=== PATIENT | male | born 1940 | race Caucasian/White ===

== ENCOUNTER 2022-03-20 12:50 | Inpatient (IN) ==
[2022-03-20] MEDS ORDERED: SODIUM CHLORIDE 0.9% 1000ML 1,000 ML IV ONE (13:09)
[2022-03-20] MEDS ORDERED: METOPROLOL TARTRATE 1 MG/ML VIAL IV STA ×2 (13:09→13:34)
--- NOTE | 2022-03-20 13:12 | Emergency Department Note ---
Impression & Plan Atrial fibrillation with RVR, Left-sided chest pain ED Provider Note Name: RICHARD ENCARNACION Age: 82 Sex: M Arrives Via: Walk-In Informant: Patient ED Provider: Khari Renee MD Chief Complaint: Weakness Impression: As per impressions above Medical Decision Makin-year-old gentleman with a history of dyslipidemia, hypothyroid, CAD, prostate CA arrives for evaluation of acute shortness of breath and weakness. Over the last week he has had worsening weakness and admits to syncopal event last week. This morning he did have an episode of chest pain which resolved. On arrival patient is in A. fib RVR and he appears somewhat tired and uncomfortable. EKG is with A. fib but no evidence of acute ischemia. He has no history of A. fib. He is not on any anticoagulation besides his aspirin 81 mg daily. Laboratory work-up is not overly impressive. He was given 2 rounds of IV Lopressor along with IV fluids and heart rate is somewhat improved sometimes jumping to low 100s but he does look better. Given the recent chest pain and the recent syncope and the new onset A. fib especially given it was requiring multiple rounds of IV rate meds I think hospitalization is indicated and patient is agreeable with this plan. He is not severely shortness of breath and he does not have any clear evidence of PE thus convincing getting a CT PE at this time is necessary especially given he likely be started on anticoagulation for his A. fib which I discussed with hospitalist and they will determine whether oral or IV meds were started for hospitalization. Prior Medical Record and Triage/Nursing Notes reviewed by Me Additional history obtained from chart Differentials:Cardiac ischemia, aortic dissection, pulmonary embolism, pneumothorax, pneumonia, pericarditis, myocarditis, esophageal rupture, GERD, cholecystitis, pancreatitis, musculoskeletal, as well as other pathologies. Vital Signs: reviewed and remarkable for tachycardia Interventions: Lopressor 5 mg IV x2, normal saline bolus IV Labs:Reviewed and remarkable for no significant abnormalities Imagin view chest x-ray no acute findings as per radiology EKG:Per My Interpretation: Indication weakness: A. fib RVR 140 bpm with a QTC of 442. No ischemia appreciated. When compared to previous EKG he is now in A. fib compared to old normal sinus rhythm Cardiac/Tele Monitoring: Cardiac Monitoring: An Order was placed for continuous cardiac monitoring. The monitor shows a rate of 120 with a atrial fibrillation rhythm. Consults:Hospitalist Plan: Disposition:Hospitalization. Condition: Good History of Present Illness:82 yr old male arrives for evaluation of weakness. He notes he has been feeling a bit fatigued over the last week. Admits last week he had a syncopal event. Denies any head injury nor headache. No weakness nor neurological deficits. States this morning awoke very short of breath, weak, fatigued and had an episode of left sided chest tightness. Notes symptoms wax and wane throughout am before coming to ED. States he did have palpitations and tachycardia. Denies headache, neck pain, nausea, vomiting, back pain, abdominal pain, leg swelling, calf pain, fevers, chills, nor other symptoms. Exertion makes worse, rest makes better. No medications taken prior to arrival. No previous history of afib. Does have history of CAD with stenting & dyslipidemia. ROS: See above HPI for pertinent positives & negatives. A total of 10 systems reviewed and were otherwise negative. Past Medical History:Dyslipidemia, hypothyroid, CAD, Prostate CA Past Surgical History:Prostate, Cardiac stents Family History:Mother with COPD, Father HTN/Cancer Social History:Retired consulting sales manager Home Medications:Asa, Atorvastatin, Plavix, Levothyroxine Allergies:NKDA Vitals:Blood Pressure: 134/91, Pulse 140, RR 18, T 35.8C, O2 96% on RA Physical Exam: GENERAL: Patient is tired appearing and in mild distress. EYES: No scleral icterus, unremarkable pupils. ENT: Mucous membranes moist, no nasal congestion. NECK: No masses appreciated, nomeningismus, trachea is midline. RESPIRATORY: No dyspnea. Clear to auscultation and equal bilaterally. No wheeze, no rhonchi. CARDIOVASCULAR: Tachy/Irregular.No murmurs, rubs, gallops appreciated. GASTROINTESTINAL: Abdomen soft, non-tender, no peritonitis.Bowel sounds positive.No masses appreciated. BACK: No midline tenderness, no CVA tenderness EXTREMITIES: Normal motion all extremities, no cyanosis, no edema. NEUROLOGIC: Alert and oriented, no acute motor or sensory deficits, no focal weakness, cranial nerves grossly intact. SKIN: No rash, no jaundice, no diaphoresis. PSYCH: Appropriate GCS: 15 ED Course: Times/Reassessments: Heart rate improving with fluids and IV Lopressor however he remains in A. fib and is agreeable to hospitalization for further management Khari Renee MD Past Med/Surg History Medical History Aortic regurgitation Atrial fibrillation with RVR Atypical chest pain Coronary artery disease Fatigue Hyperlipidemia Hypertension Hypothyroidism Mitral regurgitation Myocardial infarct Pre-diabetes Prostate cancer (11/17/98) Surgical History S/P coronary artery stent placement Family History Father Cancer Pancreatic Hypertension Mother COPD (chronic obstructive pulmonary disease) Cancer Breast Denies family history of Heart disease Social History Smoking Status: Never smoker Hx Alcohol Use: Yes Alcohol Intake Frequency Comment: socially Hx Substance Use: No Preferred Language: Syriac Communication Ability: Effective Hearing Ability: Normal Bulk [employer] Installer Required: No Beliefs That Will Affect Care: None marital status: Life Partner Current Living Situation: Spouse current occupational status: retired Feels Safe at Home: Yes caffeine: Yes Physical Activity Frequency: Does not Exercise Assistive Devices: None Allergies Allergies Allergy/AdvReac Type Severity Reaction Status Date / Time No Known Allergies Allergy Verified 03/20/22 15:53 Home Meds Home Medications Medication Instructions Recorded Confirmed aspirin 81 mg tablet,delayed 81 mg PO DAILY 11/20/20 03/20/22 release levothyroxine 75 mcg tablet 75 mcg PO DAILY 11/23/20 03/20/22 cholecalciferol (vitamin D3) 25 0 mcg PO DAILY 03/20/22 03/20/22 mcg (1,000 unit) capsule (Vitamin D3) multivitamin 1 tab PO QAM 03/20/22 03/20/22 vitamin E 400 unit capsule 0 unit PO QAM 03/20/22 03/20/22 Previous Rx's Medication Instructions Recorded atorvastatin 20 mg tablet 20 mg PO HS #90 tab 01/21/22 apixaban 5 mg tablet (Eliquis) 5 mg PO BID #60 tab 03/21/22 metoprolol tartrate 25 mg tablet 25 mg PO BID #60 tab 03/21/22 Results & Data (ED) Vital Signs Vital Signs - 24 hr 03/20/22 12:52 03/20/22 13:15 Temperature 35.8 C L Temperature Source Temporal Artery Scan Pulse Rate 119 H 130 H Respiratory Rate 18 Blood Pressure 134/91 109/77 Blood Pressure Mean 105 Pulse Oximetry 96 Oxygen Delivery Method Room Air Sepsis Recent Fever Within 48 Hours No Sepsis New/Unexplained Change in Mental Status No Sepsis Action Taken by Nursing No Action Required Laboratory Data Result diagrams: 03/21/22 04:09 03/21/22 04:09 Lab Results 03/20/22 03/20/22 03/20/22 Range/Units 13:09 13:09 13:09 WBC (4.8-10.8) K/uL RBC (4.7-6.1) M/uL Hgb (14.0-18.0) g/dL Hct (42-52) % MCV (80-100) fL MCH (25-34) pg MCHC (32-36) g/dL RDW Std Deviation (36.4-46.3) fL RDW Coeff of Inga (11.5-14.5) % Plt Count (130-400) K/uL MPV (7.4-10.4) fL Immature Gran % (Auto) % Neut % (Auto) % Lymph % (Auto) % Price % (Auto) % Eos % (Auto) % Baso % (Auto) % Neut # (Auto) (1.4-6.5) K/uL Lymph # (Auto) (1.2-3.4) K/uL Price # (Auto) (0.11-0.59) K/uL Eos # (Auto) (0-0.5) K/uL Baso # (Auto) (0-0.2) K/uL Immature Gran # (Auto) (0.00-0.02) K/uL PT 10.7 (9.0-12.0) Seconds INR 1.0 (0.9-1.1) APTT 28.7 (21.0-31.0) Seconds PTT Ratio 1.0 D-Dimer 320 (0-500) ug/L FEU Sodium (136-145) mmol/L Potassium (3.5-5.1) mmol/L Chloride (98-107) mmol/L Carbon Dioxide (21-32) mmol/L Anion Gap (3-11) BUN (6-23) mg/dl Creatinine (0.6-1.4) mg/dl Est Cr Clr Drug Dosing ml/min Est GFR ( Amer) ml/min Est GFR (Non-Af Amer) ml/min BUN/Creatinine Ratio (10-20) Glucose (70-99(Fasting)) mg/dl Lactate 1.9 (0.4-2.0) mmol/L Calcium (8.5-10.1) mg/dl Magnesium (1.7-2.4) mg/dl Total Bilirubin (0.2-1.0) mg/dl Direct Bilirubin (0-0.2) mg/dl AST (13-39) U/L ALT (7-52) U/L Alkaline Phosphatase (34-104) U/L Troponin I High Sens (0-20) pg/ml Total Protein (6.0-8.3) gm/dl Albumin (3.4-5.0) gm/dl TSH 4.786 H (0.300-4.500) uIu/ml SARS-CoV-2, RNA, NAAT (NEGATIVE) 03/20/22 03/20/22 03/20/22 Range/Units 13:09 13:09 14:20 WBC 11.12 H (4.8-10.8) K/uL RBC 5.48 (4.7-6.1) M/uL Hgb 17.3 (14.0-18.0) g/dL Hct 48.0 (42-52) % MCV 87.6 (80-100) fL MCH 31.6 (25-34) pg MCHC 36.0 (32-36) g/dL RDW Std Deviation 43.0 (36.4-46.3) fL RDW Coeff of Inga 13.4 (11.5-14.5) % Plt Count 207 (130-400) K/uL MPV 10.9 H (7.4-10.4) fL Immature Gran % (Auto) 0.3 % Neut % (Auto) 62.5 % Lymph % (Auto) 26.3 % Price % (Auto) 7.4 % Eos % (Auto) 3.1 % Baso % (Auto) 0.4 % Neut # (Auto) 6.96 H (1.4-6.5) K/uL Lymph # (Auto) 2.93 (1.2-3.4) K/uL Price # (Auto) 0.82 H (0.11-0.59) K/uL Eos # (Auto) 0.34 (0-0.5) K/uL Baso # (Auto) 0.04 (0-0.2) K/uL Immature Gran # (Auto) 0.03 H (0.00-0.02) K/uL PT (9.0-12.0) Seconds INR (0.9-1.1) APTT (21.0-31.0) Seconds PTT Ratio D-Dimer (0-500) ug/L FEU Sodium 138 (136-145) mmol/L Potassium 4.2 (3.5-5.1) mmol/L Chloride 108 H (98-107) mmol/L Carbon Dioxide 22 (21-32) mmol/L Anion Gap 8 (3-11) BUN 18 (6-23) mg/dl Creatinine 0.95 (0.6-1.4) mg/dl Est Cr Clr Drug Dosing 57.0 ml/min Est GFR ( Amer) 86.7 ml/min Est GFR (Non-Af Amer) 74.8 ml/min BUN/Creatinine Ratio 18.9 (10-20) Glucose 125 H (70-99(Fasting)) mg/dl Lactate (0.4-2.0) mmol/L Calcium 9.2 (8.5-10.1) mg/dl Magnesium 2.1 (1.7-2.4) mg/dl Total Bilirubin 0.9 (0.2-1.0) mg/dl Direct Bilirubin 0.2 (0-0.2) mg/dl AST 14 (13-39) U/L ALT 18 (7-52) U/L Alkaline Phosphatase 89 (34-104) U/L Troponin I High Sens 3.1 (0-20) pg/ml Total Protein 6.6 (6.0-8.3) gm/dl Albumin 3.9 (3.4-5.0) gm/dl TSH (0.300-4.500) uIu/ml SARS-CoV-2, RNA, NAAT NEGATIVE (NEGATIVE) Administered Medications Discontinued Medications Aspirin (Aspirin 81 Mg Ectab) 81 mg PO DAILY MERE Stop: 04/20/22 08:59 Last Admin: 03/21/22 08:53 Dose: 81 mg Documented by: [id number] Atorvastatin Calcium (Atorvastatin 20 Mg Tab) 20 mg PO HS MERE Stop: 04/19/22 20:59 Last Admin: 03/20/22 21:12 Dose: 20 mg Documented by: [id number] Sodium Chloride (Nss 1000ml) 1,000 mls @ 999 mls/hr IV .Q1H1M ONE Stop: 03/20/22 14:09 Last Infusion: 03/20/22 14:11 Dose: 0 mls/hr Documented by: [id number] Admin: 03/20/22 13:13 Dose: 999 mls/hr Documented by: [id number] Sodium Chloride (Nss 1000ml) 1,000 mls @ 100 mls/hr IV .Q10H MERE Stop: 03/21/22 19:24 Last Infusion: 03/21/22 16:06 Dose: 0 mls/hr Documented by: [id number] Admin: 03/21/22 08:44 Dose: 100 mls/hr Documented by: [id number] Infusion: 03/21/22 07:44 Dose: 100 mls/hr Documented by: [id number] Admin: 03/20/22 21:44 Dose: 100 mls/hr Documented by: [id number] Infusion: 03/20/22 21:44 Dose: 0 mls/hr Documented by: [id number] Admin: 03/20/22 14:25 Dose: 125 mls/hr Documented by: [id number] Heparin Sodium/Dextrose (Heparin Sodium/Dextrose) 25,000 units in 500 mls @ 25 mls/hr IV .Q20H MERE; Protocol Stop: 04/19/22 17:35 Last Titration: 03/21/22 16:06 Dose: 0 units/hr, 0 mls/hr Documented by: [id number] Cosigned by: [id number] Admin: 03/21/22 12:26 Dose: 1,250 units/hr, 25 mls/hr Documented by: [id number] Cosigned by: [id number] Titration: 03/21/22 12:26 Dose: 1,250 units/hr, 25 mls/hr Documented by: [id number] Cosigned by: [id number] Admin: 03/20/22 17:49 Dose: 1,250 units/hr, 25 mls/hr Documented by: [id number] Cosigned by: [id number] Levothyroxine Sodium (Levothyroxine Sodium 75 Mcg Tablet) 75 mcg PO DAILYBB [facility] Stop: 04/20/22 06:29 Last Admin: 03/21/22 04:36 Dose: 75 mcg Documented by: [id number] Metoprolol Tartrate (Metoprolol Tartrate 1 Mg/Ml Vial) 5 mg IV NOW STA Stop: 03/20/22 13:10 Last Admin: 03/20/22 13:15 Dose: 5 mg Documented by: [id number] Metoprolol Tartrate (Metoprolol Tartrate 1 Mg/Ml Vial) 5 mg IV NOW STA Stop: 03/20/22 13:35 Last Admin: 03/20/22 14:29 Dose: 5 mg Documented by: [id number] Metoprolol Tartrate (Metoprolol Tartrate 25 Mg Tab) 12.5 mg PO QID [facility] Stop: 04/19/22 16:59 Last Admin: 03/21/22 13:18 Dose: 12.5 mg Documented by: [id number] Admin: 03/21/22 10:41 Dose: 12.5 mg Documented by: [id number] Admin: 03/20/22 21:12 Dose: 12.5 mg Documented by: [id number] Admin: 03/20/22 18:01 Dose: 12.5 mg Documented by: [id number] Vitamin D (Cholecalciferol 1,000 Units 25 Mcg Tab) 1,000 units PO DAILY [facility] Stop: 04/20/22 08:59 Last Admin: 03/21/22 08:53 Dose: 1,000 units Documented by: [id number] Discharge Plan Visit Data Chief Complaint: Hypertension Stated Complaint: FLUCTUATING BLOOD PRESSURE Discharge Problem: Atrial fibrillation with RVR, Left-sided chest pain Patient Disposition: Admitted As Inpatient Discharge Instructions Interventions: ED Discharge Assessment Last Done: 03/20/22 17:10
--- NOTE | 2022-03-20 13:36 | XRay Report ---
XR chest 1V portable CLINICAL HISTORY: Weakness. Evaluate cardiopulmonary status COMPARISON STUDY: 01/10/2022 TECHNIQUE: 1 view of the chest FINDINGS: Single frontal view of the chest demonstrates the cardiomediastinal silhouette to be within normal li mits. There is again asymmetric elevation of the right hemidiaphragm. The lungs are clear of alveolar opacities. There is no evidence for pleural effusion. There is no evidence for vascular congestion. There is no acute osseous pathology. IMPRESSION: 1. No acute cardiopulmonary disease. ACT 112: Negative or not required by law. Electronically signed by: Vinicius Torres M.D. 03/20/2022 1:34 PM
[2022-03-20 14:04] LABS: Basophils # (auto) 0.04 K/uL (0-0.2); Basophils % (auto) 0.4 %; Eosinophils # (auto) 0.34 K/uL (0-0.5); Eosinophils % (auto) 3.1 %; Hemoglobin 17.3 g/dL (14.0-18.0); Immature Granulocytes # (auto) 0.03 K/uL (0.00-0.02); Immature Granulocytes % (auto) 0.3 %; Lymphocytes # (auto) 2.93 K/uL (1.2-3.4); Lymphocytes % (auto) 26.3 %; Mean Corpuscular Hemoglobin 31.6 pg (25-34); Mean Corpuscular Volume 87.6 fL (80-100); Mean Platelet Volume 10.9 fL (7.4-10.4); Monocytes # (auto) 0.82 K/uL (0.11-0.59); Monocytes % (auto) 7.4 %; Neutrophils # (auto) 6.96 K/uL (1.4-6.5); Neutrophils % (auto) 62.5 %; Platelet Count 207 K/uL (130-400); RDW Coefficient of Variation 13.4 % (11.5-14.5); Red Blood Count 5.48 M/uL (4.7-6.1); White Blood Count 11.12 K/uL (4.8-10.8)
[2022-03-20 14:12] LABS: D Dimer 320 ug/L FEU (0-500); Partial Thromboplastin Time 28.7 Seconds (21.0-31.0); Prothrombin Time 10.7 Seconds (9.0-12.0)
[2022-03-20 14:15] LABS: Troponin I High Sensitivity 3.1 pg/ml (0-20)
[2022-03-20 14:19] LABS: Albumin Level 3.9 gm/dl (3.4-5.0); BUN Creatinine Ratio 18.9 (10-20); Bilirubin Direct 0.2 mg/dl (0-0.2); Bilirubin,Total 0.9 mg/dl (0.2-1.0); Calcium 9.2 mg/dl (8.5-10.1); Est GFR (African American) 86.7 ml/min; Est GFR (Non-African American) 74.8 ml/min; Magnesium 2.1 mg/dl (1.7-2.4); Potassium 4.2 mmol/L (3.5-5.1); Total Protein 6.6 gm/dl (6.0-8.3)
[2022-03-20] MEDS: SODIUM CHLORIDE 0.9% 1000ML 1,000 ML IV SCH ×2 (14:25→21:44)
--- NOTE | 2022-03-20 15:08 | History & Physical Report ---
Date of Service March 20, 2022 Assessment & Plan (1) Atrial fibrillation with RVR: Plan: Atrial Fibrillation RVR: New Onset CHDS2 score:2 TSH:4.7 CXR:No acute cardiopulmonary disease. ECHO pending Monitor electrolytes Started on metoprolol 12.5 mg QID IV Lopressor PRN Started on IV heparin Follows with [facility] Cardiology Cardiology consulted Trend Cardiac enzymes Replace electrolytes as needed Continue gentle IV fluids CAD S/P PCI Continue aspirin, Lipitor Hold Plavix while on IV heparin Repeat EKG in the morning Hypothyroidism TSH mildly elevated Check free T4 Continue levothyroxine Hypertension As per records BP low on presentation Currently not on any medication Monitor Prostate cancer S/P cryosurgery Residual cancer currently being monitored Follows with urology as outpatient Valvular heart disease Continue home medications Update echo Leukocytosis Likely reactive No obvious source of infection Monitor CODE STATUS Full code as per my discussion with patient. Disposition PT/OT prior to discharge History of Present Illness Chief Complaint: Afib RVR Primary Care Provider: Albino Purvis MD Patient is a 82-year-old male with history of prostate cancer S/P cryosurgery, hypothyroidism, dyslipidemia, prediabetes, coronary artery disease S/P PCI, arctic valve regurgitation, mitral valve insufficiency, hypertension and no other significant past medical history presents with history of lethargy, tiredness and left-sided chest achiness which started this morning. Patient woke up and was taking his dog out and felt that his left side of the chest is achy, 1/10 intensity, nonradiating, denies any palpitations, associated with some shortness of breath. Denies any aggravating, relieving factors.He also denies any nausea, vomiting, dizziness, diaphoresis. Although he admits to have intermittent dizziness on and off but no dizziness today. He checked his blood pressure at home and found to be 100/76 and felt his pulse was irregular, elevated at 123. He also states that he has poor oral fluid intake (Mostly drinks Carbonated drinks), " I don't drink water, I don't feel thirsty". He was found to be in A. fib RVR while in ED. His blood pressure dropped after receiving IV Lopressor. Patient was started on normal saline while in ED. Denies any history of pedal edema, cough, wheezing, fever, chills, headache, change in vision, nausea, vomiting, abdominal pain, diarrhea, dysuria, recent change in medications. Currently patient is chest pain free after receiving Lopressor. Allergies Allergy/AdvReac Type Severity Reaction Status Date / Time No Known Allergies Allergy Verified 03/20/22 15:53 Home Medications Medication Instructions Recorded Confirmed Type aspirin 81 mg tablet,delayed 81 mg PO DAILY 11/20/20 03/20/22 History release levothyroxine 75 mcg tablet 75 mcg PO DAILY 11/23/20 03/20/22 History atorvastatin 20 mg tablet 20 mg PO HS #90 tab 01/21/22 03/20/22 Rx cholecalciferol (vitamin D3) 25 0 mcg PO DAILY 03/20/22 03/20/22 History mcg (1,000 unit) capsule (Vitamin D3) clopidogrel 75 mg tablet (Plavix) 75 mg PO HS 03/20/22 03/20/22 History multivitamin 1 tab PO QAM 03/20/22 03/20/22 History vitamin E 400 unit capsule 0 unit PO QAM 03/20/22 03/20/22 History Past Med/Surg History Medical History (Updated 03/20/22 @ 17:25 by Boni Bhatti MD) Aortic regurgitation Atrial fibrillation with RVR Atypical chest pain Coronary artery disease Fatigue Hyperlipidemia Hypertension Hypothyroidism Mitral regurgitation Myocardial infarct Pre-diabetes Prostate cancer (11/17/98) Surgical History S/P coronary artery stent placement Family History Father Cancer Pancreatic Hypertension Mother COPD (chronic obstructive pulmonary disease) Cancer Breast Denies family history of Heart disease Social History Smoking Status: Never smoker Hx Alcohol Use: Yes Alcohol Intake Frequency Comment: socially Hx Substance Use: No Preferred Language: Serbian Communication Ability: Effective Hearing Ability: Normal Director Foundation Required: No Beliefs That Will Affect Care: None marital status: Current Living Situation: Spouse current occupational status: retired Feels Safe at Home: Yes caffeine: Yes Physical Activity Frequency: Does not Exercise Assistive Devices: Glasses Review of Systems Review of Systems: All systems reviewed & are unremarkable except as noted in Subjective Physical Exam Physical Exam: Physical Exam: Vitals signs as noted above General Appearance:Moderately built and nourished, no apparent distress Head: normocephalic, Atraumatic Eyes: normal inspection, EOMI Neck: supple, Trachea midline Respiratory/Chest: Normal breath sounds, CTA, No accessory muscle use Cardiovascular: Irregularly irregular, Tachycardia, + murmur Abdomen/GI:Soft, Non tender, Bowel sounds present Extremities/Musculoskeletal:normal inspection, no edema Neurologic/Psych:AAOX3, grossly no focal neurological deficits Skin: normal color, warm Results & Data Results & Data ([facility]) Vital Signs (Past 12 Hours) Vital Signs Temp Pulse Resp BP Pulse Ox 03/20/22 14:50 93 H 12 96 03/20/22 14:45 90 14 96 03/20/22 14:40 108 H 11 L 98 03/20/22 14:35 91 H 11 L 107/74 97 03/20/22 14:30 101 H 15 118/77 95 03/20/22 14:29 103 H 118/77 03/20/22 14:25 102 H 7 L 97 03/20/22 14:20 106 H 18 96 03/20/22 14:15 97 H 6 L 96 03/20/22 14:10 96 H 19 96 03/20/22 14:05 92 H 8 L 95 03/20/22 14:00 97 H 9 L 123/87 97 03/20/22 13:55 108 H 13 96 03/20/22 13:50 119 H 15 99/73 L 95 03/20/22 13:45 100 H 6 L 95 03/20/22 13:40 102 H 14 96 03/20/22 13:35 101 H 15 03/20/22 13:31 126 H 19 110/82 96 03/20/22 13:30 118 H 15 97 03/20/22 13:25 115 H 10 L 104/68 97 03/20/22 13:23 118 H 11 L 115/76 96 03/20/22 13:20 124 H 12 101/70 97 03/20/22 13:18 130 H 12 97 03/20/22 13:15 130 H 109/77 03/20/22 12:52 35.8 C L 119 H 18 134/91 96 Laboratory Results Short CBC 03/20/22 Range/Units 13:09 WBC 11.12 H (4.8-10.8) K/uL Hgb 17.3 (14.0-18.0) g/dL Hct 48.0 (42-52) % Plt Count 207 (130-400) K/uL BMP 03/20/22 13:09 Sodium 138 Potassium 4.2 Chloride 108 H Carbon Dioxide 22 BUN 18 Creatinine 0.95 Glucose 125 H Calcium 9.2 Liver Function 03/20/22 Range/Units 13:09 Total Bilirubin 0.9 (0.2-1.0) mg/dl Direct Bilirubin 0.2 (0-0.2) mg/dl AST 14 (13-39) U/L ALT 18 (7-52) U/L Alkaline Phosphatase 89 (34-104) U/L Albumin 3.9 (3.4-5.0) gm/dl Diagnostic Findings CXR: No acute cardiopulmonary disease. ECG Additional Comments: EKG: Atrial fibrillation with RVR. Left axis deviation. QTc 442.
[2022-03-20] MEDS ORDERED: POLYETHYLENE (MIRALAX) 17 GM PACK PO PRN (16:58)
[2022-03-20] MEDS ORDERED: ACETAMINOPHEN 325 MG TAB PO PRN (16:58)
[2022-03-20] MEDS ORDERED: METOPROLOL TARTRATE 1 MG/ML VIAL IV PRN (16:58)
[2022-03-20] MEDS ORDERED: Heparin IV Adult Wt-Based Standard *NO* Bolus Protocol IV SCH (16:58)
[2022-03-20] MEDS ORDERED: ONDANSETRON INJ 2 MG/ML 2 ML VIAL IV PRN (16:58)
[2022-03-20] MEDS: HEPARIN SODIUM/DEXTROSE 25,000 UNITS/500 ML BAG IV SCH (17:49)
[2022-03-20] MEDS: METOPROLOL TARTRATE 25 MG TAB PO SCH ×2 (18:01→21:12)
[2022-03-20] MEDS ORDERED: ATORVASTATIN 20 MG TAB PO SCH (21:00)
[2022-03-21 00:17] LABS: Partial Thromboplastin Ratio 1.9
[2022-03-21 00:27] LABS: Partial Thromboplastin Time 51.8 Seconds (21.0-31.0)
[2022-03-21 04:55] LABS: Partial Thromboplastin Ratio 2.4; Troponin I High Sensitivity 3.5 pg/ml (0-20)
[2022-03-21 04:57] LABS: Partial Thromboplastin Time 66.1 Seconds (21.0-31.0)
[2022-03-21 04:59] LABS: BUN Creatinine Ratio 16.2 (10-20); Calcium 8.2 mg/dl (8.5-10.1); Creatinine Clr Calc Pharmacy 51.6 ml/min; Est GFR (African American) 76.8 ml/min; Est GFR (Non-African American) 66.3 ml/min; Magnesium 1.9 mg/dl (1.7-2.4); Potassium 4.2 mmol/L (3.5-5.1)
[2022-03-21 05:16] LABS: Basophils # (auto) 0.03 K/uL (0-0.2); Basophils % (auto) 0.3 %; Eosinophils # (auto) 0.41 K/uL (0-0.5); Eosinophils % (auto) 3.7 %; Hematocrit (blood only) 44.6 % (42-52); Hemoglobin 15.5 g/dL (14.0-18.0); Immature Granulocytes # (auto) 0.05 K/uL (0.00-0.02); Immature Granulocytes % (auto) 0.5 %; Lymphocytes # (auto) 3.97 K/uL (1.2-3.4); Lymphocytes % (auto) 36.1 %; Mean Corpuscular Hemoglobin 31.1 pg (25-34); Mean Corpuscular Hgb Conc 34.8 g/dL (32-36); Mean Corpuscular Volume 89.4 fL (80-100); Monocytes % (auto) 8.2 %; Neutrophils # (auto) 5.64 K/uL (1.4-6.5); Neutrophils % (auto) 51.2 %; Platelet Count 178 K/uL (130-400); RDW Coefficient of Variation 13.7 % (11.5-14.5); RDW Standard Deviation 44.3 fL (36.4-46.3); Red Blood Count 4.99 M/uL (4.7-6.1)
[2022-03-21] MEDS ORDERED: LEVOTHYROXINE SODIUM 75 MCG TABLET PO SCH (06:30)
[2022-03-21] MEDS: SODIUM CHLORIDE 0.9% 1000ML 1,000 ML IV SCH (08:44)
[2022-03-21] MEDS ORDERED: CHOLECALCIFEROL 1,000 UNITS 25 MCG TAB PO SCH (09:00)
[2022-03-21] MEDS ORDERED: ASPIRIN 81 MG ECTAB PO SCH (09:00)
--- NOTE | 2022-03-21 09:50 | Hospitalist Progress Note ---
Date of Service March 21, 2022 Assessment & Plan (1) Atrial fibrillation with RVR: Plan: Atrial Fibrillation RVR: New Onset CHDS2 score:2 TSH:4.7 CXR:No acute cardiopulmonary disease. ECHO ontained - Normal LV size and systolic function. EF 65 to 70%. No regional wall motion abnormalities. Moderate concentric LVH. Sclerotic aortic valve without significant stenosis. Mild mitral regurg. Normal estimated RV systolic pressure, assuming normal right atrial pressure. Atrial fibrillation. Compared to prior study in November 2020, Braxton alvarado has replaced sinus rhythm Monitor electrolytes Started on metoprolol, plan to DC on 25 mg BID IV Lopressor PRN while inpt Started on IV heparin - will DC on Eliquis Follows with [facility] Cardiology -continue aspirin, however as we are discharging on Eliquis, stop Plavix. Cardiology consulted Trended Cardiac enzymes - negative x3 Replace electrolytes as needed Continue gentle IV fluids 03/21 - Pt converted to NSR - ECG ordered to confirm. CAD S/P PCI Continue aspirin, Lipitor Hold Plavix while on IV heparin Repeated EKG Hypothyroidism TSH mildly elevated free T4 1.11 Continue levothyroxine Hypertension As per records BP low on presentation Currently not on any home medication starting metoprolol Monitor Prostate cancer S/P cryosurgery Residual cancer currently being monitored Follows with urology as outpatient Valvular heart disease Continue home medications Update echo, as above Leukocytosis Likely reactive No obvious source of infection Monitor CODE STATUS Full code Disposition: plan to Dc home Admission and Anticipated Discharge Date Admission Date: March 20, 2022 Subjective Pt seen in follow up of new onset Afib Presented with Braxton alvarado with RVR, converted to sinus rhythm later today Currently laying in bed, in no acute distress Denies any palpitations chest pain shortness of breath Also denies any dizziness or lightheadedness, fever chills, nausea vomiting Seen by cardiology, medications adjusted Review of Systems Review of Systems: All systems reviewed & are unremarkable except as noted in Subjective Physical Exam Physical Exam: General Appearance:Moderately built and nourished, no apparent distress Head: normocephalic, Atraumatic Eyes: normal inspection, EOMI Neck: supple, Trachea midline Respiratory/Chest: Normal breath sounds, CTA, No accessory muscle use Cardiovascular: RRR, no murmur noted Abdomen/GI:Soft, Non tender, Bowel sounds present Extremities/Musculoskeletal:normal inspection, no edema Neurologic/Psych:AAOX3,answering questions appropriately, speech fluent, moves extremities Skin: normal color, warm Results & Data Results & Data ([facility]) Vital Signs (Past 12 Hours) Vital Signs Temp Pulse Pulse Resp BP Pulse Ox 03/21/22 07:45 36.6 C 97 H 15 100/62 95 03/21/22 04:15 36.3 C L 96 H 16 99/63 L 94 03/20/22 23:00 101 H 03/20/22 22:50 36.7 C 106 H 18 115/87 96 Laboratory Results 03/21/22 03/21/22 03/21/22 Range/Units 04:09 04:09 04:09 WBC (4.8-10.8) K/uL RBC (4.7-6.1) M/uL Hgb (14.0-18.0) g/dL Hct (42-52) % MCV (80-100) fL MCH (25-34) pg MCHC (32-36) g/dL RDW Std Deviation (36.4-46.3) fL RDW Coeff of Inga (11.5-14.5) % Plt Count (130-400) K/uL MPV (7.4-10.4) fL Immature Gran % (Auto) % Neut % (Auto) % Lymph % (Auto) % [place] % (Auto) % Eos % (Auto) % Baso % (Auto) % Neut # (Auto) (1.4-6.5) K/uL Lymph # (Auto) (1.2-3.4) K/uL [place] # (Auto) (0.11-0.59) K/uL Eos # (Auto) (0-0.5) K/uL Baso # (Auto) (0-0.2) K/uL Immature Gran # (Auto) (0.00-0.02) K/uL PT (9.0-12.0) Seconds INR (0.9-1.1) APTT 66.1 H* (21.0-31.0) Seconds PTT Ratio 2.4 D-Dimer (0-500) ug/L FEU Sodium 138 (136-145) mmol/L Potassium 4.2 (3.5-5.1) mmol/L Chloride 108 H (98-107) mmol/L Carbon Dioxide 26 (21-32) mmol/L Anion Gap 4 (3-11) BUN 17 (6-23) mg/dl Creatinine 1.05 (0.6-1.4) mg/dl Est Cr Clr Drug Dosing 51.6 ml/min Est GFR ( Amer) 76.8 ml/min Est GFR (Non-Af Amer) 66.3 ml/min BUN/Creatinine Ratio 16.2 (10-20) Glucose 110 H (70-99(Fasting)) mg/dl Lactate (0.4-2.0) mmol/L Calcium 8.2 L (8.5-10.1) mg/dl Magnesium 1.9 (1.7-2.4) mg/dl Total Bilirubin (0.2-1.0) mg/dl Direct Bilirubin (0-0.2) mg/dl AST (13-39) U/L ALT (7-52) U/L Alkaline Phosphatase (34-104) U/L Troponin I High Sens 3.5 (0-20) pg/ml Total Protein (6.0-8.3) gm/dl Albumin (3.4-5.0) gm/dl TSH (0.300-4.500) uIu/ml Free T4 1.11 (0.61-1.60) ng/dl SARS-CoV-2, RNA, NAAT (NEGATIVE) 03/21/22 03/20/22 03/20/22 Range/Units 04:09 23:30 19:02 WBC 11.00 H (4.8-10.8) K/uL RBC 4.99 (4.7-6.1) M/uL Hgb 15.5 (14.0-18.0) g/dL Hct 44.6 (42-52) % MCV 89.4 (80-100) fL MCH 31.1 (25-34) pg MCHC 34.8 (32-36) g/dL RDW Std Deviation 44.3 (36.4-46.3) fL RDW Coeff of Inga 13.7 (11.5-14.5) % Plt Count 178 (130-400) K/uL MPV 11.0 H (7.4-10.4) fL Immature Gran % (Auto) 0.5 % Neut % (Auto) 51.2 % Lymph % (Auto) 36.1 % [place] % (Auto) 8.2 % Eos % (Auto) 3.7 % Baso % (Auto) 0.3 % Neut # (Auto) 5.64 (1.4-6.5) K/uL Lymph # (Auto) 3.97 H (1.2-3.4) K/uL [place] # (Auto) 0.90 H (0.11-0.59) K/uL Eos # (Auto) 0.41 (0-0.5) K/uL Baso # (Auto) 0.03 (0-0.2) K/uL Immature Gran # (Auto) 0.05 H (0.00-0.02) K/uL PT (9.0-12.0) Seconds INR (0.9-1.1) APTT 51.8 H* (21.0-31.0) Seconds PTT Ratio 1.9 D-Dimer (0-500) ug/L FEU Sodium (136-145) mmol/L Potassium (3.5-5.1) mmol/L Chloride (98-107) mmol/L Carbon Dioxide (21-32) mmol/L Anion Gap (3-11) BUN (6-23) mg/dl Creatinine (0.6-1.4) mg/dl Est Cr Clr Drug Dosing ml/min Est GFR ( Amer) ml/min Est GFR (Non-Af Amer) ml/min BUN/Creatinine Ratio (10-20) Glucose (70-99(Fasting)) mg/dl Lactate (0.4-2.0) mmol/L Calcium (8.5-10.1) mg/dl Magnesium (1.7-2.4) mg/dl Total Bilirubin (0.2-1.0) mg/dl Direct Bilirubin (0-0.2) mg/dl AST (13-39) U/L ALT (7-52) U/L Alkaline Phosphatase (34-104) U/L Troponin I High Sens 3.7 (0-20) pg/ml Total Protein (6.0-8.3) gm/dl Albumin (3.4-5.0) gm/dl TSH (0.300-4.500) uIu/ml Free T4 (0.61-1.60) ng/dl SARS-CoV-2, RNA, NAAT (NEGATIVE) 03/20/22 03/20/22 03/20/22 Range/Units 14:20 13:09 13:09 WBC 11.12 H (4.8-10.8) K/uL RBC 5.48 (4.7-6.1) M/uL Hgb 17.3 (14.0-18.0) g/dL Hct 48.0 (42-52) % MCV 87.6 (80-100) fL MCH 31.6 (25-34) pg MCHC 36.0 (32-36) g/dL RDW Std Deviation 43.0 (36.4-46.3) fL RDW Coeff of Inga 13.4 (11.5-14.5) % Plt Count 207 (130-400) K/uL MPV 10.9 H (7.4-10.4) fL Immature Gran % (Auto) 0.3 % Neut % (Auto) 62.5 % Lymph % (Auto) 26.3 % [place] % (Auto) 7.4 % Eos % (Auto) 3.1 % Baso % (Auto) 0.4 % Neut # (Auto) 6.96 H (1.4-6.5) K/uL Lymph # (Auto) 2.93 (1.2-3.4) K/uL [place] # (Auto) 0.82 H (0.11-0.59) K/uL Eos # (Auto) 0.34 (0-0.5) K/uL Baso # (Auto) 0.04 (0-0.2) K/uL Immature Gran # (Auto) 0.03 H (0.00-0.02) K/uL PT (9.0-12.0) Seconds INR (0.9-1.1) APTT (21.0-31.0) Seconds PTT Ratio D-Dimer (0-500) ug/L FEU Sodium 138 (136-145) mmol/L Potassium 4.2 (3.5-5.1) mmol/L Chloride 108 H (98-107) mmol/L Carbon Dioxide 22 (21-32) mmol/L Anion Gap 8 (3-11) BUN 18 (6-23) mg/dl Creatinine 0.95 (0.6-1.4) mg/dl Est Cr Clr Drug Dosing 57.0 ml/min Est GFR ( Amer) 86.7 ml/min Est GFR (Non-Af Amer) 74.8 ml/min BUN/Creatinine Ratio 18.9 (10-20) Glucose 125 H (70-99(Fasting)) mg/dl Lactate (0.4-2.0) mmol/L Calcium 9.2 (8.5-10.1) mg/dl Magnesium 2.1 (1.7-2.4) mg/dl Total Bilirubin 0.9 (0.2-1.0) mg/dl Direct Bilirubin 0.2 (0-0.2) mg/dl AST 14 (13-39) U/L ALT 18 (7-52) U/L Alkaline Phosphatase 89 (34-104) U/L Troponin I High Sens 3.1 (0-20) pg/ml Total Protein 6.6 (6.0-8.3) gm/dl Albumin 3.9 (3.4-5.0) gm/dl TSH (0.300-4.500) uIu/ml Free T4 (0.61-1.60) ng/dl SARS-CoV-2, RNA, NAAT NEGATIVE (NEGATIVE) 03/20/22 03/20/22 03/20/22 Range/Units 13:09 13:09 13:09 WBC (4.8-10.8) K/uL RBC (4.7-6.1) M/uL Hgb (14.0-18.0) g/dL Hct (42-52) % MCV (80-100) fL MCH (25-34) pg MCHC (32-36) g/dL RDW Std Deviation (36.4-46.3) fL RDW Coeff of Inga (11.5-14.5) % Plt Count (130-400) K/uL MPV (7.4-10.4) fL Immature Gran % (Auto) % Neut % (Auto) % Lymph % (Auto) % [place] % (Auto) % Eos % (Auto) % Baso % (Auto) % Neut # (Auto) (1.4-6.5) K/uL Lymph # (Auto) (1.2-3.4) K/uL [place] # (Auto) (0.11-0.59) K/uL Eos # (Auto) (0-0.5) K/uL Baso # (Auto) (0-0.2) K/uL Immature Gran # (Auto) (0.00-0.02) K/uL PT 10.7 (9.0-12.0) Seconds INR 1.0 (0.9-1.1) APTT 28.7 (21.0-31.0) Seconds PTT Ratio 1.0 D-Dimer 320 (0-500) ug/L FEU Sodium (136-145) mmol/L Potassium (3.5-5.1) mmol/L Chloride (98-107) mmol/L Carbon Dioxide (21-32) mmol/L Anion Gap (3-11) BUN (6-23) mg/dl Creatinine (0.6-1.4) mg/dl Est Cr Clr Drug Dosing ml/min Est GFR ( Amer) ml/min Est GFR (Non-Af Amer) ml/min BUN/Creatinine Ratio (10-20) Glucose (70-99(Fasting)) mg/dl Lactate 1.9 (0.4-2.0) mmol/L Calcium (8.5-10.1) mg/dl Magnesium (1.7-2.4) mg/dl Total Bilirubin (0.2-1.0) mg/dl Direct Bilirubin (0-0.2) mg/dl AST (13-39) U/L ALT (7-52) U/L Alkaline Phosphatase (34-104) U/L Troponin I High Sens (0-20) pg/ml Total Protein (6.0-8.3) gm/dl Albumin (3.4-5.0) gm/dl TSH 4.786 H (0.300-4.500) uIu/ml Free T4 (0.61-1.60) ng/dl SARS-CoV-2, RNA, NAAT (NEGATIVE) Medications Administered Current Inpatient Medications Acetaminophen (Acetaminophen 325 Mg Tab) 650 mg PO Q4H PRN PRN Reason: Pain or Fever Stop: 04/19/22 16:57 Aspirin (Aspirin 81 Mg Ectab) 81 mg PO DAILY MERE Stop: 04/20/22 08:59 Last Admin: 03/21/22 08:53 Dose: 81 mg Documented by: Atorvastatin Calcium (Atorvastatin 20 Mg Tab) 20 mg PO HS MERE Stop: 04/19/22 20:59 Last Admin: 03/20/22 21:12 Dose: 20 mg Documented by: Sodium Chloride (Nss 1000ml) 1,000 mls @ 100 mls/hr IV .Q10H [facility] Stop: 03/21/22 19:24 Last Admin: 03/21/22 08:44 Dose: 100 mls/hr Documented by: Heparin Sodium/Dextrose (Heparin Sodium/Dextrose) 25,000 units in 500 mls @ 25 mls/hr IV .Q20H [facility]; Protocol Stop: 04/19/22 17:35 Last Admin: 03/20/22 17:49 Dose: 1,250 units/hr, 25 mls/hr Documented by: Levothyroxine Sodium (Levothyroxine Sodium 75 Mcg Tablet) [facility]: 04/20/22 06:29 Last Admin: 03/21/22 04:36 Dose: 75 mcg Documented by: Metoprolol Tartrate (Metoprolol Tartrate 25 Mg Tab) 12.5 mg PO QID [facility] Stop: 04/19/22 16:59 Last Admin: 03/20/22 21:12 Dose: 12.5 mg Documented by: Metoprolol Tartrate (Metoprolol Tartrate 1 Mg/Ml Vial) 2.5 mg IV Q6 PRN PRN Reason: Tachycardia HR> 120 Stop: 04/19/22 16:57 Ondansetron HCl (Ondansetron Inj 2 Mg/Ml 2 Ml Vial) 4 mg IV Q6H PRN PRN Reason: Nausea Stop: 04/19/22 16:57 Polyethylene Glycol (Polyethylene (Miralax) 17 Gm Pack) 17 gm PO DAILY PRN PRN Reason: Constipation Stop: 04/19/22 16:57 Vitamin D (Cholecalciferol 1,000 Units 25 Mcg Tab) 1,000 units PO DAILY [facility] Stop: 04/20/22 08:59 Last Admin: 03/21/22 08:53 Dose: 1,000 units Documented by:
[2022-03-21] MEDS: METOPROLOL TARTRATE 25 MG TAB PO SCH ×2 (10:41→13:18)
[2022-03-21] MEDS: HEPARIN SODIUM/DEXTROSE 25,000 UNITS/500 ML BAG IV SCH (12:26)
--- NOTE | 2022-03-21 14:06 | XCELERA ---
[id number] [id number]
--- NOTE | 2022-03-21 14:19 | Cardiology Consultation ---
Date of Consultation March 21, 2022 Assessment & Plan (1) Atrial fibrillation with RVR: (2) Paroxysmal atrial fibrillation: (3) Coronary artery disease: (4) S/P coronary artery stent placement: (5) Hypertension: (6) Mitral regurgitation: (7) Atypical chest pain: (8) Aortic regurgitation: ASSESSMENT/PLAN: 1. Paroxysmal atrial fibrillation/AFib with RVR: He remained in AFib during our conversation but have since been told that he has converted. ECG ordered to document such. We discussed the diagnosis in detail. We discussed the fact that he may convert spontaneously. Because he is completely asymptomatic with reasonable heart rate control on low-dose beta-raul, recommend rate control strategy. Metoprolol 25 mg twice daily. Recommend anticoagulation for stroke risk reduction. Consider Eliquis 5 mg twice daily. 2. Atypical chest pain: Chest pain was short-lived. It occurred in the setting of AFib with RVR. High sensitivity troponin is unremarkable. No further ischemic evaluation necessary at this time. He has a history of atypical chest discomfort. 3. CAD s/p RCA VT and PCI (LAD and RCA): No angina. Continue aspirin 81 mg daily indefinitely. Can discontinue Plavix now that he will be on anticoagulation therapy. Beta-raul as noted. Continue statin therapy. 4. Hypertension: Blood pressure has been normotensive and occasionally mildly hypotensive. He is asymptomatic. Beta-raul as above for heart rate control. 5. Dyslipidemia: Continue statin therapy. LDL has been excellent. 6. Aortic and mitral regurgitation: mild. Asymptomatic. 7. Disposition: Can be discharged home from a Cardiology perspective. Continue to follow in the cardiology office as an outpatient. Plan of care communicated with Dr. Choi of the primary hospitalist service. Today's visit was 43 minutes in duration, including counseling patient, coordinating care with primary hospitalist, reviewing records, and chart completion. Thank you for allowing me to participate in the care of your patient. Please call for any other questions or concerns. Sincerely, Joavni Blair M.D. History of Present Illness Reason for Consultation: Atrial fibrillation Requesting Physician: Dr. Bhatti Attending Physician: Carrington Choi MD History of Present Illness Mr. Laura is a very pleasant 82-year-old gentleman with history significant for CAD s/p PCI (RCA and LAD 2018), RCA VT, dyslipidemia, and borderline diabetes. Previous records mentioned hypertension as well. He was hospitalized in April of 2018 in [place] with myocardial infarction. Angina consisted of substernal indigestion with left arm numbness. He underwent PCI of the RCA and then a staged procedure for PCI of mid LAD. He has had the following studies/procedures: 1. Cardiac catheterization 05/03/2018 [place]: LAD 70% bifurcation lesion. RCA 99%. Underwent PCI of RCA with 3.5 x 18 mm mathieu VINCE. 2. Cardiac catheterization May 2018 [place]: Mid LAD 80% bifurcation lesion extending into the D2. D2 70%. Underwent PCI of mid LAD with 2.75 x 30 mm resolute VINCE. PTCA of jailed D2. 3. Myocardial PET May 2019: No ischemia. Fixed defect inferoseptal wall (small). 4. Echo May 2019 [place]: Normal LV systolic function. EF 65%. Mild MR. Sclerotic aortic valve. Trace to mild AI. 5. [facility]: Normal LV size, wall motion, systolic function. EF 60-65%. Mild LVH. Minimally sclerotic aortic valve with trace regurgitation. Normal RVSP. He was admitted on 03/20/2022 with atrial fibrillation and rapid ventricular response. On 03/20/2022, he noted in the morning that he did not feel well. He went for a walk with his dog. He noted mild dyspnea with exertion there and also while climbing stairs. He came back home and sat down and drank a cup of coffee. He recalls feeling dizzy while sitting in a chair 1 week prior but otherwise had felt well in between time. Because he did not feel well, he decided to check his blood pressure and noted that his blood pressure was normal but his heart rate was elevated at 126 beats per minute. He recalled tachycardia during his VT in the past and therefore decided to seek medical attention. He felt a chest pressure and ache in the substernal and left-sided chest area. It occurred only for a few minutes while at rest and spontaneously resolved. In the past, his VT involved left arm numbness which was not present for this presentation. In the emergency department he was noted to be in atrial fibrillation with rapid ventricular response. He was given IV fluids, intravenous metoprolol and intravenous heparin. He was placed on metoprolol 12.5 mg p.o. q.i.d.. When he was seen this morning, he felt back to baseline. He remained in atrial fibrillation but had no awareness of it. His heart rate was in the 90s on telemetry. He denies chest pain, shortness of breath, syncope, near-syncope, palpitations, edema, or significant bleeding. He admits that he has hemorrhoids and will occasionally have blood on the toilet paper after a bowel movement, but no significant hematochezia. He denies significant alcohol consumption but admits that he has been taking 2 shots of vodka at bedtime to help him sleep more recently. Review of systems:As above. Family history:No known premature CAD in first-degree relatives. Father with pancreatic cancer. Mother with COPD. Social history:Denies tobacco or drug abuse. Occasional alcohol. from his who has since . Has 2 children, a son in [place] and a daughter in [place]. 4 grandchildren (from his daughter). Currently to his , Kurt (from [place]) and 36 years younger. Originally from [place] and went to school at [employer]. Moved from [place] to [place] in August of 2020. 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 He was alone in his hospital room. Allergies Allergy/AdvReac Type Severity Reaction Status Date / Time No Known Allergies Allergy Verified 03/20/22 15:53 Home Medications Medication Instructions Recorded Confirmed Type aspirin 81 mg tablet,delayed 81 mg PO DAILY 11/20/20 03/20/22 History release levothyroxine 75 mcg tablet 75 mcg PO DAILY 11/23/20 03/20/22 History atorvastatin 20 mg tablet 20 mg PO HS #90 tab 01/21/22 03/20/22 Rx cholecalciferol (vitamin D3) 25 0 mcg PO DAILY 03/20/22 03/20/22 History mcg (1,000 unit) capsule (Vitamin D3) clopidogrel 75 mg tablet (Plavix) 75 mg PO HS 03/20/22 03/20/22 History multivitamin 1 tab PO QAM 03/20/22 03/20/22 History vitamin E 400 unit capsule 0 unit PO QAM 03/20/22 03/20/22 History Patient History Medical History Aortic regurgitation Atrial fibrillation with RVR Atypical chest pain Coronary artery disease Fatigue Hyperlipidemia Hypertension Hypothyroidism Mitral regurgitation Myocardial infarct Pre-diabetes Prostate cancer (11/17/98) Surgical History S/P coronary artery stent placement Family History Father Cancer Pancreatic Hypertension Mother COPD (chronic obstructive pulmonary disease) Cancer Breast Denies family history of Heart disease Social History Smoking Status: Never smoker Hx Alcohol Use: Yes Alcohol Intake Frequency Comment: socially Hx Substance Use: No Preferred Language: Filipino Communication Ability: Effective Hearing Ability: Normal Canceling And Cutting Control Clerk Required: No Beliefs That Will Affect Care: None marital status: Life Partner Current Living Situation: Spouse current occupational status: retired Feels Safe at Home: Yes Safety Concerns: Feels Safe At This Time caffeine: Yes Physical Activity Frequency: Does not Exercise Assistive Devices: None Physical Exam Physical Exam: Gen.: No acute distress. Alert and oriented. HEENT: Anicteric sclera. Neck: No JVD. Cardiac: PMI was nondisplaced. No ventricular heave. Irregularly irregular in the 90s. Normal S1-S2. No murmurs, rubs, or gallops. Pulmonary: Clear to auscultation bilaterally without wheezes, rales, or rhonchi. Abdomen: Soft, nontender, nondistended, with normoactive bowel sounds. No bruits noted. Extremities: 2+ radial pulses bilaterally. 2+ posterior tibialis pulses bilaterally. No edema or cyanosis. Psychiatric: Affect appears appropriate. Results & Data ([facility]) Vital Signs (Past 12 Hours) Vital Signs Temp Pulse Pulse Resp BP BP Pulse Ox 03/21/22 13:19 66 104/68 03/21/22 10:41 36.7 C 104 H 16 101/67 96 03/21/22 09:59 93 H 95/49 L 108/71 03/21/22 07:45 36.6 C 97 H 15 100/62 95 03/21/22 06:11 111 H 03/21/22 04:15 36.3 C L 96 H 16 99/63 L 94 Laboratory Results Laboratory Results - last 24 hr 03/20/22 03/20/22 03/20/22 13:09 13:09 13:09 WBC RBC Hgb Hct MCV MCH MCHC RDW Std Deviation RDW Coeff of Inga Plt Count MPV Immature Gran % (Auto) Neut % (Auto) Lymph % (Auto) [place] % (Auto) Eos % (Auto) Baso % (Auto) Neut # (Auto) Lymph # (Auto) [place] # (Auto) Eos # (Auto) Baso # (Auto) Immature Gran # (Auto) PT 10.7 INR 1.0 APTT 28.7 PTT Ratio 1.0 D-Dimer 320 Sodium 138 Potassium 4.2 Chloride 108 H Carbon Dioxide 22 Anion Gap 8 BUN 18 Creatinine 0.95 Est Cr Clr Drug Dosing 57.0 Est GFR ( Amer) 86.7 Est GFR (Non-Af Amer) 74.8 BUN/Creatinine Ratio 18.9 Glucose 125 H Calcium 9.2 Magnesium 2.1 Total Bilirubin 0.9 Direct Bilirubin 0.2 AST 14 ALT 18 Alkaline Phosphatase 89 Troponin I High Sens 3.1 Total Protein 6.6 Albumin 3.9 TSH 4.786 H Free T4 SARS-CoV-2, RNA, NAAT 03/20/22 03/20/22 03/20/22 14:20 19:02 23:30 WBC RBC Hgb Hct MCV MCH MCHC RDW Std Deviation RDW Coeff of Inga Plt Count MPV Immature Gran % (Auto) Neut % (Auto) Lymph % (Auto) [place] % (Auto) Eos % (Auto) Baso % (Auto) Neut # (Auto) Lymph # (Auto) [place] # (Auto) Eos # (Auto) Baso # (Auto) Immature Gran # (Auto) PT INR APTT 51.8 H* PTT Ratio 1.9 D-Dimer Sodium Potassium Chloride Carbon Dioxide Anion Gap BUN Creatinine Est Cr Clr Drug Dosing Est GFR ( Amer) Est GFR (Non-Af Amer) BUN/Creatinine Ratio Glucose Calcium Magnesium Total Bilirubin Direct Bilirubin AST ALT Alkaline Phosphatase Troponin I High Sens 3.7 Total Protein Albumin TSH Free T4 SARS-CoV-2, RNA, NAAT NEGATIVE 03/21/22 03/21/22 03/21/22 04:09 04:09 04:09 WBC 11.00 H RBC 4.99 Hgb 15.5 Hct 44.6 MCV 89.4 MCH 31.1 MCHC 34.8 RDW Std Deviation 44.3 RDW Coeff of Inga 13.7 Plt Count 178 MPV 11.0 H Immature Gran % (Auto) 0.5 Neut % (Auto) 51.2 Lymph % (Auto) 36.1 [place] % (Auto) 8.2 Eos % (Auto) 3.7 Baso % (Auto) 0.3 Neut # (Auto) 5.64 Lymph # (Auto) 3.97 H [place] # (Auto) 0.90 H Eos # (Auto) 0.41 Baso # (Auto) 0.03 Immature Gran # (Auto) 0.05 H PT INR APTT PTT Ratio D-Dimer Sodium 138 Potassium 4.2 Chloride 108 H Carbon Dioxide 26 Anion Gap 4 BUN 17 Creatinine 1.05 Est Cr Clr Drug Dosing 51.6 Est GFR ( Amer) 76.8 Est GFR (Non-Af Amer) 66.3 BUN/Creatinine Ratio 16.2 Glucose 110 H Calcium 8.2 L Magnesium 1.9 Total Bilirubin Direct Bilirubin AST ALT Alkaline Phosphatase Troponin I High Sens 3.5 Total Protein Albumin TSH Free T4 1.11 SARS-CoV-2, RNA, NAAT 03/21/22 04:09 WBC RBC Hgb Hct MCV MCH MCHC RDW Std Deviation RDW Coeff of Inga Plt Count MPV Immature Gran % (Auto) Neut % (Auto) Lymph % (Auto) [place] % (Auto) Eos % (Auto) Baso % (Auto) Neut # (Auto) Lymph # (Auto) [place] # (Auto) Eos # (Auto) Baso # (Auto) Immature Gran # (Auto) PT INR APTT 66.1 H* PTT Ratio 2.4 D-Dimer Sodium Potassium Chloride Carbon Dioxide Anion Gap BUN Creatinine Est Cr Clr Drug Dosing Est GFR ( Amer) Est GFR (Non-Af Amer) BUN/Creatinine Ratio Glucose Calcium Magnesium Total Bilirubin Direct Bilirubin AST ALT Alkaline Phosphatase Troponin I High Sens Total Protein Albumin TSH Free T4 SARS-CoV-2, RNA, NAAT Diagnostic Findings Telemetry personally reviewed: Atrial fibrillation mostly in the 90s over the past several hours. ECG personally reviewed: ECG 03/21/2022 at 4:30 a.m.: AFib 87 beats per minute. Inferior infarct. ECG 03/20/2022 at 12:58 p.m.: AFib with RVR 140 beats per minute. Inferior infarct. Echo 03/21/2022: Normal LV systolic function and wall motion. EF 65-70%. Moderate LVH. Sclerotic aortic valve without stenosis. Mild MR. Normal RVSP. AFib. Chest x-ray 03/20/2022: No acute cardiopulmonary disease per Radiology. Medications Administered Current Inpatient Medications Acetaminophen (Acetaminophen 325 Mg Tab) 650 mg PO Q4H PRN PRN Reason: Pain or Fever Stop: 04/19/22 16:57 Aspirin (Aspirin 81 Mg Ectab) 81 mg PO DAILY [facility] Stop: 04/20/22 08:59 Last Admin: 03/21/22 08:53 Dose: 81 mg Documented by: Atorvastatin Calcium (Atorvastatin 20 Mg Tab) 20 mg PO HS [facility] Stop: 04/19/22 20:59 Last Admin: 03/20/22 21:12 Dose: 20 mg Documented by: Sodium Chloride (Nss 1000ml) 1,000 mls @ 100 mls/hr IV .Q10H [facility] Stop: 03/21/22 19:24 Last Admin: 03/21/22 08:44 Dose: 100 mls/hr Documented by: Heparin Sodium/Dextrose (Heparin Sodium/Dextrose) 25,000 units in 500 mls @ 25 mls/hr IV .Q20H [facility]; Protocol Stop: 04/19/22 17:35 Last Admin: 03/21/22 12:26 Dose: 1,250 units/hr, 25 mls/hr Documented by: Levothyroxine Sodium (Levothyroxine Sodium 75 Mcg Tablet) 75 mcg PO DAILYBB [facility] Stop: 04/20/22 06:29 Last Admin: 03/21/22 04:36 Dose: 75 mcg Documented by: Metoprolol Tartrate (Metoprolol Tartrate 25 Mg Tab) 12.5 mg PO QID [facility] Stop: 04/19/22 16:59 Last Admin: 03/21/22 13:18 Dose: 12.5 mg Documented by: Metoprolol Tartrate (Metoprolol Tartrate 1 Mg/Ml Vial) 2.5 mg IV Q6 PRN PRN Reason: Tachycardia HR> 120 Stop: 04/19/22 16:57 Ondansetron HCl (Ondansetron Inj 2 Mg/Ml 2 Ml Vial) 4 mg IV Q6H PRN PRN Reason: Nausea Stop: 04/19/22 16:57 Polyethylene Glycol (Polyethylene (Miralax) 17 Gm Pack) 17 gm PO DAILY PRN PRN Reason: Constipation Stop: 04/19/22 16:57 Vitamin D (Cholecalciferol 1,000 Units 25 Mcg Tab) 1,000 units PO DAILY [facility] Stop: 04/20/22 08:59 Last Admin: 03/21/22 08:53 Dose: 1,000 units Documented by: PG Care Time/CCT Total # of Minutes Spent Total Time Spent with Patient: Total time spent is greater than 50% in coordination of care (as documented) at patient's floor/unit and/or counseling patient: Coding Level of Care Code 09943 Office/Outpt Visit, Est Diagnoses Atrial fibrillation with RVR I48.91 Paroxysmal atrial fibrillation I48.0 Coronary artery disease I25.10 S/P coronary artery stent placement Z95.5 Hypertension I10 Mitral regurgitation I34.0 Atypical chest pain R07.89 Aortic regurgitation I35.1 Time Spent (min) 43
--- NOTE | 2022-03-21 14:49 | Discharge Summary ---
Date of Service March 21, 2022 Admission HPI Per Admitting Provider Patient is a 82-year-old male with history of prostate cancer S/P cryosurgery, hypothyroidism, dyslipidemia, prediabetes, coronary artery disease S/P PCI, arctic valve regurgitation, mitral valve insufficiency, hypertension and no other significant past medical history presents with history of lethargy, tiredness and left-sided chest achiness which started this morning. Patient woke up and was taking his dog out and felt that his left side of the chest is achy, 1/10 intensity, nonradiating, denies any palpitations, associated with some shortness of breath. Denies any aggravating, relieving factors.He also denies any nausea, vomiting, dizziness, diaphoresis. Although he admits to have intermittent dizziness on and off but no dizziness today. He checked his blood pressure at home and found to be 100/76 and felt his pulse was irregular, elevated at 123. He also states that he has poor oral fluid intake (Mostly drinks Carbonated drinks), " I don't drink water, I don't feel thirsty". He was found to be in A. fib RVR while in ED. His blood pressure dropped after receiving IV Lopressor. Patient was started on normal saline while in ED. Denies any history of pedal edema, cough, wheezing, fever, chills, headache, change in vision, nausea, vomiting, abdominal pain, diarrhea, dysuria, recent change in medications. Currently patient is chest pain free after receiving Lopressor. Admission Exam Per Admitting Provider General Appearance:Moderately built and nourished, no apparent distress Head: normocephalic, Atraumatic Eyes: normal inspection, EOMI Neck: supple, Trachea midline Respiratory/Chest: Normal breath sounds, CTA, No accessory muscle use Cardiovascular: Irregularly irregular, Tachycardia, + murmur Abdomen/GI:Soft, Non tender, Bowel sounds present Extremities/Musculoskeletal:normal inspection, no edema Neurologic/Psych:AAOX3, grossly no focal neurological deficits Skin: normal color, warm Principal Diagnosis atrial fibrillation with RVR /Paroxysmal A. fib Discharge Exam General Appearance:Moderately built and nourished, no apparent distress Head: normocephalic, Atraumatic Eyes: normal inspection, EOMI Neck: supple, Trachea midline Respiratory/Chest: Normal breath sounds, CTA, No accessory muscle use Cardiovascular: RRR, no murmur noted Abdomen/GI:Soft, Non tender, Bowel sounds present Extremities/Musculoskeletal:normal inspection, no edema Neurologic/Psych:AAOX3,answering questions appropriately, speech fluent, moves extremities Skin: normal color, warm Discharge Data Allergies Allergy/AdvReac Type Severity Reaction Status Date / Time No Known Allergies Allergy Verified 03/20/22 15:53 Consultations 03/20/22 15:01 ED Decision to Admit Stat 03/20/22 16:58 Consult Cardiology Routine Hospital Course (1) Atrial fibrillation with RVR: Atrial Fibrillation RVR: New Onset CHDS2 score:2 TSH:4.7 CXR:No acute cardiopulmonary disease. ECHO ontained - Normal LV size and systolic function. EF 65 to 70%. No regional wall motion abnormalities. Moderate concentric LVH. Sclerotic aortic valve without significant stenosis. Mild mitral regurg. Normal estimated RV systolic pressure, assuming normal right atrial pressure. Atrial fibrillation. Compared to prior study in November 2020, A. fib has replaced sinus rhythm Monitor electrolytes Started on metoprolol, plan to DC on 25 mg BID IV Lopressor PRN while inpt Started on IV heparin - will DC on Eliquis Follows with [facility] Cardiology -continue aspirin, however as we are discharging on Eliquis, stop Plavix. Cardiology consulted Trended Cardiac enzymes - negative x3 Replace electrolytes as needed Continue gentle IV fluids 03/21 - Pt converted to NSR - ECG ordered to confirm. CAD S/P PCI Continue aspirin, Lipitor Hold Plavix while on IV heparin Repeated EKG Hypothyroidism TSH mildly elevated free T4 1.11 Continue levothyroxine Hypertension As per records BP low on presentation Currently not on any home medication starting metoprolol Monitor Prostate cancer S/P cryosurgery Residual cancer currently being monitored Follows with urology as outpatient Valvular heart disease Continue home medications Update echo, as above Leukocytosis Likely reactive No obvious source of infection Monitor CODE STATUS Full code Disposition: plan to Dc home Total Time Total Time Spent Total Time Spent (In Minutes): 40 Discharge Plan Discharge Items Patient Disposition: Home - Self-Care Reason For Visit: ATRIAL FIBRILLATION RVR Discharge Diagnosis: atrial fibrillation with RVR /Paroxysmal A. fib Activity: Per Instructions section Non-emergency contact: Primary Care Provider and Brim Blocker Call non-emergency contact if: you have any medication questions Follow-up/Referrals: Albino Purvis MD [Primary Care Provider] - (Date & Time 03/29/2022 2:00 PM Provider Albino Purvis MD [facility] ) Diet: Heart Healthy Addtl Attending Provider Instructions: Follow-up with your primary care doctor and fish cleaner. Take metoprolol, to control your heart rate, as prescribed 25 mg twice a day. Take Eliquis, blood thinner, to prevent stroke. Continue taking aspirin, however stop taking Plavix. Pending Studies at Discharge: No Stand-Alone Forms: [facility], Smoking Cessation Medications and DC Order Prescriptions: New metoprolol tartrate 25 mg tablet 25 mg PO BID Qty: 60 RF: 0 Eliquis 5 mg tablet 5 mg PO BID Qty: 60 RF: 0 Continued atorvastatin 20 mg tablet 20 mg PO HS Qty: 90 RF: 3 aspirin 81 mg tablet,delayed release (DR/EC) 81 mg PO DAILY RF: 0 levothyroxine 75 mcg tablet 75 mcg PO DAILY RF: 0 multivitamin Tablet 1 tab PO QAM RF: 0 vitamin E 400 unit Capsule 0 unit PO QAM RF: 0 cholecalciferol (vitamin D3) [Vitamin D3] 25 mcg (1,000 unit) Capsule 0 mcg PO DAILY RF: 0 Discontinued clopidogrel [Plavix] 75 mg tablet 75 mg PO HS RF: 0 Discharge Orders: Discharge Order (Routine); Ordered 03/21/22 Ordered By: Carrington Choi Admission Data Admit Date/Time: 03/20/22 15:25 Attending Provider: Carrington Choi Admit Provider: Boni Bhatti Primary Care Provider: Albino Purvis Other Providers: Boni Bhatti ; Abdirashid Hidalgo ; Adiel Marcelo ; Pio Smith ; Julius Mejia ; rFeddie Garza ; Leonardo Arroyo Jr ; Tera Blair ; Jada Abraham ; Krissy Manzo ; Mor Galeana ; Clinton Sharpe ; Varinder Aguilar ; Abi Pena ; Natalia Vega ; Valentin Jackson ; Juaquin Peterson Michael K. ; Jaron Chen ; Julius Steele V.
--- NOTE | 2022-03-21 22:47 | Electrocardiogram Report ---
Test Reason : Blood Pressure : / mmHG Vent. Rate : 140 BPM Atrial Rate : 117 BPM P-R Int : 000 ms QRS Dur : 082 ms QT Int : 290 ms P-R-T Axes : 000 -64 040 degrees QTc Int : 442 ms Atrial fibrillation with rapid ventricular response Left axis deviation Inferior infarct (cited on or before 10-JAN-2022) Poor R wave progression, consider anterior MD vs. lead placement vs. LVH Abnormal ECG When compared with ECG of 10-JAN-2022 11:34, Atrial fibrillation has replaced Sinus rhythm Vent. rate has increased BY 73 BPM Confirmed by Tera Blair ([id number]) on 03/21/2022 10:46:18 PM Referred By: REFERRED SELF Confirmed By:Trea Blair
--- NOTE | 2022-03-22 07:28 | Electrocardiogram Report ---
Test Reason : Blood Pressure : / mmHG Vent. Rate : 087 BPM Atrial Rate : 061 BPM P-R Int : 000 ms QRS Dur : 086 ms QT Int : 354 ms P-R-T Axes : 000 -28 008 degrees QTc Int : 425 ms Atrial fibrillation Low voltage QRS Inferior infarct (cited on or before 10-JAN-2022) Abnormal ECG When compared with ECG of 20-MAR-2022 12:58, Vent. rate has decreased BY 53 BPM Criteria for Anterior infarct are no longer Present Confirmed by Tera Blair ([id number]) on 03/22/2022 7:27:37 AM Referred By: REFERRED SELF Confirmed By:Tera Blair
--- NOTE | 2022-03-22 07:54 | Electrocardiogram Report ---
Test Reason : Blood Pressure : / mmHG Vent. Rate : 063 BPM Atrial Rate : 063 BPM P-R Int : 200 ms QRS Dur : 084 ms QT Int : 426 ms P-R-T Axes : 053 -20 024 degrees QTc Int : 435 ms Normal sinus rhythm Inferior infarct (cited on or before 10-JAN-2022) Abnormal ECG When compared with ECG of 21-MAR-2022 04:30, Sinus rhythm has replaced Atrial fibrillation Confirmed by Tera Blair ([id number]) on 03/22/2022 7:53:52 AM Referred By: REFERRED SELF Confirmed By:Tera Blair
== END 2022-03-21 16:07 | disposition home or self-care (01) | DRG 310 ==
LOC: ED 12:50 → EDINP 15:25 → SUATTDRO 15:25 → 2S 17:10
DX: Z85.46 Personal history of malignant neoplasm of prostate; Z79.01 Long term (current) use of anticoagulants; Z95.5 Presence of coronary angioplasty implant and graft; D72.829 Elevated white blood cell count, unspecified; I08.0 Rheumatic disorders of both mitral and aortic valves; E78.5 Hyperlipidemia, unspecified; I25.10 Atherosclerotic heart disease of native coronary artery without angina pectoris; Z79.890 Hormone replacement therapy; Z79.82 Long term (current) use of aspirin; E03.9 Hypothyroidism, unspecified; I48.0 Paroxysmal atrial fibrillation; I10 Essential (primary) hypertension; I25.2 Old myocardial infarction

== ENCOUNTER 2024-06-06 08:42 | Inpatient (IN) ==
[2024-06-06] MEDS: SODIUM CHLORIDE 0.9% 500 ML IV ONE (09:08)
[2024-06-06 09:09] LABS: Basophils % (auto) 0.7 %; Eosinophils # (auto) 0.75 K/uL (0.00-0.50); Eosinophils % (auto) 5.5 %; Hematocrit (blood only) 47.5 % (42.0-52.0); Hemoglobin 16.6 g/dl (14.0-18.0); Immature Granulocytes # (auto) 0.05 K/uL (0.01-0.20); Immature Granulocytes % (auto) 0.4 %; Lymphocytes # (auto) 3.79 K/uL (1.20-3.40); Lymphocytes % (auto) 27.7 %; Mean Corpuscular Hemoglobin 29.4 pg (25.0-34.0); Mean Corpuscular Hgb Conc 34.9 g/dL (32.0-36.0); Mean Corpuscular Volume 84.1 fL (80.0-100.0); Monocytes # (auto) 1.03 K/uL (0.11-0.59); Monocytes % (auto) 7.5 %; Neutrophils # (auto) 7.97 K/uL (1.40-6.50); Neutrophils % (auto) 58.2 %; Platelet Count 260 K/uL (130-400); RDW Coefficient of Variation 13.4 % (11.5-14.5); RDW Standard Deviation 40.9 fL (36.4-46.3); Red Blood Count 5.65 M/uL (4.70-6.10); White Blood Count 13.69 K/ul (4.8-10.8)
[2024-06-06] MEDS: METOPROLOL TARTRATE 1 MG/ML VIAL IV STA ×2 (09:09→10:18)
--- NOTE | 2024-06-06 09:12 | Emergency Department Note ---
Impression & Plan Atrial fibrillation with rapid ventricular response, Chest pain, SOB (shortness of breath) ED Provider Note NAME: RICHARD ENCARNACION AGE: 84 SEX: Male INFORMANT: Patient ED PROVIDER(S): Blaze Walker MD CHIEF COMPLAINT: Chest pain PLAN: Disposition: Admitted Outpatient prescription management: none Referral: None MEDICAL DECISION MAKING: Patient presented because of chest pain, shortness of breath and palpitations. On examination he was found to have rapid atrial fibrillation. EKG did not show any acute ischemia. Q waves were noted. An IV was established. Blood work was obtained. Chest x-ray was ordered. Patient was started on gentle fluid bolus and was given 2.5 mg of IV metoprolol to start rate control. Patient is anticoagulated. He has not missed any of his recent medications. Patient felt much better and blood pressure did improve. He was given a second dose of IV metoprolol 2.5 mg. Blood pressures were mildly borderline however record review indicates that this is not uncommon for the patient. His chest pain had resolved. Given the situation further management in the hospital was felt to be appropriate. [facility]. Patient was evaluated in the ER and admitted for further management Care/management discussed with: sr. operations manager Level of care consideration(s): After review of the information above and other included data, I feel the patient requires escalation of care to admission. Triage Nursing notes: reviewed and agree them. Vital Signs: reviewed and remarkable for significant tachycardia Additional History obtained from: none Chronic Medical/Social Conditions affecting care: Anticoagulation, A-fib, CAD Prior/ Outside/ External records reviewed: none Differential Diagnosis: Premature contractions, electrolyte abnormality, cardiac dysrhythmia, thyroid dysfunction, pulmonary embolism, infection, gastrointestinal, as well as other pathologies. Diagnostics, independently interpreted by me: ECG: Twelve-lead ECG reveals atrial fibrillation with rapid ventricular response at 146 bpm. Left axis deviation. Septal and inferior Q waves are present. No ST elevation Cardiac Monitoring: Cardiac monitoring ordered by me: The patient was placed on continuous cardiac monitoring and observed. It revealed rapid atrial fibrillation at 151 bpm. Medical decision rules: Patient is high risk by HEART SCORE Imaging studies: Chest x-ray. Findings: A chest x-ray was performed and revealed no pneumothorax, effusion, infiltrate, pulmonary edema, free air under the diaphragm, or wide mediastinum. Impression: No acute disease. HPI: 84 year old Male arrives for evaluation of chest pain and shortness of breath. This started last night and is persisting. The patient also notes the following associated symptoms, shortness of breath, palpitation. The patient has found no relieving factors. Current pain is rated as 2/10. Patient has a history of A-fib. He also has a history of CAD. He follows with [facility] cardiology and [facility] primary care. He states he has been in good health recently. He does note drinking some alcohol last night to help him sleep pt denies LOC, headache, fevers, chills, diaphoresis, visual changes, neck pain, nausea, vomiting, abdominal pain, back pain, melena, hematochezia, urinary symptoms, numbness, weakness, lymphadenopathy, rash, or other complaints.. PAST MEDICAL HISTORY: CAD, A-fib, see below PAST SURGICAL HISTORY: See Below, SOCIAL HISTORY: See Below, retired HOME MEDICATIONS: See Below ALLERGIES: See Below VITALS: See Below PHYSICAL EXAMINATION: GENERAL: Awake, alert, well-appearing, in no distress HENT: Normocephalic, atraumatic. Oropharynx unremarkable. EYES: Normal conjunctiva. Sclera non-icteric. NECK: Inspection normal. Non-tender. Supple. No nuchal rigidity. FROM. No masses. RESPIRATORY: Clear to auscultation. No wheezes. No rales. Normal respiratory effort. CARDIAC: Tachycardic rate. Irregular rhythm. No murmurs. No rubs. Extremities warm and well perfused. Pulses equal. No JVD. GI: Soft, non-distended. No tenderness to palpation. No rebound or guarding. No masses. RECTAL: Deferred. MUSCULOSKELETAL: Atraumatic. Chest examination reveals no tenderness. The back is symmetrical on inspection without obvious abnormality. There is no CVA tenderness to palpation. No joint edema. LOWER EXTREMITIES: Calves are equal size bilaterally and non-tender. No edema. No discoloration. NEURO: Normal sensorium. No sensory or motor deficits noted. SKIN: No rash or jaundice noted. PROCEDURES: none CRITICAL CARE: I have personally spent 35 minutes of critical care time in the direct management of this patient. This includes bedside care, interpretation of diagnostic studies, and testing, discussion with consultants, patient, and family members, and other required patient management activities. These minutes are in excess of all separately billable procedures. OBSERVATION NOTE: none Past Med/Surg History Problem List SOB (shortness of breath) (Acute) Chest pain (Acute) Atrial fibrillation with rapid ventricular response (Acute) Dyspnea on exertion Aortic regurgitation Hyperlipidemia Hypertension S/P coronary artery stent placement Coronary artery disease Left-sided chest pain (Acute) Paroxysmal atrial fibrillation Atrial fibrillation with RVR (Acute) Prostate cancer (11/17/98) Medical History Atypical chest pain Fatigue Hypothyroidism Myocardial infarct Pre-diabetes Mitral regurgitation Family History Father Cancer Pancreatic Hypertension Mother COPD (chronic obstructive pulmonary disease) Cancer Breast Denies family history of Heart disease Social History Smoking Status: Former smoker Do You Dip or Chew Tobacco: No; Hx Alcohol Use: Yes Alcohol Intake Frequency Comment: socially Hx Substance Use: No Preferred Language: Surinamese Communication Ability: Effective Hearing Ability: Normal Residential Pest Control Technician Required: No Beliefs That Will Affect Care: None marital status: Life Partner Current Living Situation: Spouse current occupational status: retired Feels Safe at Home: Yes Diet: regular caffeine: Yes Physical Activity Frequency: Does not Exercise Assistive Devices: None Allergies Allergies Allergy/AdvReac Type Severity Reaction Status Date / Time No Known Allergies Allergy Verified 06/06/24 09:41 Home Meds Home Medications Medication Instructions Recorded Confirmed aspirin 81 mg tablet,delayed 81 mg PO QAM 11/20/20 06/06/24 release levothyroxine 75 mcg tablet 75 mcg PO QAM 11/23/20 06/06/24 apixaban 5 mg tablet (Eliquis) 5 mg PO QPM 06/06/24 06/06/24 Previous Rx's Medication Instructions Recorded atorvastatin 20 mg tablet 20 mg PO HS #90 tabs 05/03/24 Results & Data (ED) Vital Signs Vital Signs - 24 hr 06/06/24 08:43 06/06/24 08:57 06/06/24 08:58 Temperature 36.6 C Temperature Source Temporal Artery Scan Pulse Rate 106 H 141 H 135 H Pulse Rate from SpO2 Sensor 116 H Respiratory Rate 18 21 Blood Pressure 102/72 Blood Pressure Mean 82 Pulse Oximetry 98 98 Sepsis Recent Fever Within 48 Hours No Sepsis New/Unexplained Change in Mental Status N/A Sepsis Action Taken by Nursing No Action Required 06/06/24 08:59 06/06/24 09:03 06/06/24 09:06 Temperature Temperature Source Pulse Rate 144 H 137 H 150 H Pulse Rate from SpO2 Sensor 138 H 134 H 138 H Respiratory Rate 18 17 Blood Pressure 99/77 L Blood Pressure Mean 83 Pulse Oximetry 99 99 Sepsis Recent Fever Within 48 Hours Sepsis New/Unexplained Change in Mental Status Sepsis Action Taken by Nursing 06/06/24 09:09 06/06/24 09:12 06/06/24 09:12 Temperature Temperature Source Pulse Rate 144 H 147 H 121 H Pulse Rate from SpO2 Sensor 141 H Respiratory Rate 20 16 Blood Pressure 99/77 L 103/89 103/89 Blood Pressure Mean 92 92 Pulse Oximetry 98 97 Sepsis Recent Fever Within 48 Hours Sepsis New/Unexplained Change in Mental Status Sepsis Action Taken by Nursing 06/06/24 09:30 06/06/24 09:36 06/06/24 10:00 Temperature Temperature Source Pulse Rate 116 H Pulse Rate from SpO2 Sensor 93 H Respiratory Rate 14 Blood Pressure 107/83 109/84 Blood Pressure Mean 87 89 Pulse Oximetry 95 Sepsis Recent Fever Within 48 Hours Sepsis New/Unexplained Change in Mental Status Sepsis Action Taken by Nursing 06/06/24 10:00 06/06/24 10:21 06/06/24 10:31 Temperature Temperature Source Pulse Rate 118 H 113 H Pulse Rate from SpO2 Sensor 116 H 105 H Respiratory Rate 15 19 Blood Pressure 98/74 L Blood Pressure Mean 82 Pulse Oximetry 97 95 Sepsis Recent Fever Within 48 Hours Sepsis New/Unexplained Change in Mental Status Sepsis Action Taken by Nursing 06/06/24 10:33 06/06/24 10:36 06/06/24 10:40 Temperature Temperature Source Pulse Rate 106 H 105 H Pulse Rate from SpO2 Sensor 99 H 99 H Respiratory Rate 25 H 19 Blood Pressure 106/62 Blood Pressure Mean 67 Pulse Oximetry 97 95 Sepsis Recent Fever Within 48 Hours Sepsis New/Unexplained Change in Mental Status Sepsis Action Taken by Nursing 06/06/24 10:40 06/06/24 10:51 06/06/24 11:00 Temperature Temperature Source Pulse Rate 105 H Pulse Rate from SpO2 Sensor 105 H Respiratory Rate 23 Blood Pressure 106/62 105/81 Blood Pressure Mean 67 86 Pulse Oximetry 95 Sepsis Recent Fever Within 48 Hours Sepsis New/Unexplained Change in Mental Status Sepsis Action Taken by Nursing 06/06/24 11:15 06/06/24 11:31 06/06/24 11:36 Temperature Temperature Source Pulse Rate 108 H 120 H Pulse Rate from SpO2 Sensor 82 116 H Respiratory Rate 12 11 L Blood Pressure 95/70 L Blood Pressure Mean 75 Pulse Oximetry 97 96 Sepsis Recent Fever Within 48 Hours Sepsis New/Unexplained Change in Mental Status Sepsis Action Taken by Nursing Laboratory Data 06/06/24 08:58 06/06/24 08:58 Lab Results 06/06/24 06/06/24 Range/Units 08:58 11:55 WBC 13.69 H (4.8-10.8) K/ul RBC 5.65 (4.70-6.10) M/uL Hgb 16.6 (14.0-18.0) g/dl Hct 47.5 (42.0-52.0) % MCV 84.1 (80.0-100.0) fL MCH 29.4 (25.0-34.0) pg MCHC 34.9 (32.0-36.0) g/dL RDW Std Deviation 40.9 (36.4-46.3) fL RDW Coeff of Inga 13.4 (11.5-14.5) % Plt Count 260 (130-400) K/uL MPV 10.0 (9.4-12.4) fL Immature Gran % (Auto) 0.4 % Neut % (Auto) 58.2 % Lymph % (Auto) 27.7 % [place] % (Auto) 7.5 % Eos % (Auto) 5.5 % Baso % (Auto) 0.7 % Neut # (Auto) 7.97 H (1.40-6.50) K/uL Lymph # (Auto) 3.79 H (1.20-3.40) K/uL [place] # (Auto) 1.03 H (0.11-0.59) K/uL Eos # (Auto) 0.75 H (0.00-0.50) K/uL Baso # (Auto) 0.10 (0.00-0.20) K/uL Immature Gran # (Auto) 0.05 (0.01-0.20) K/uL Sodium 135 L (136-145) mmol/L Potassium 4.2 (3.5-5.1) mmol/L Chloride 104 (98-107) mmol/L Carbon Dioxide 23 (21-32) mmol/L Anion Gap 8 (3-11) BUN 24 H (6-23) mg/dl Creatinine 0.87 (0.6-1.4) mg/dl Est Cr Clr Drug Dosing 60.1 ml/min Est GFR ( Amer) 92.5 ml/min Est GFR (Non-Af Amer) 79.8 ml/min BUN/Creatinine Ratio 27.6 H (10-20) Glucose 149 H (70-99(Fasting)) mg/dl Calcium 9.0 (8.6-10.3) mg/dl Magnesium 2.2 (1.7-2.4) mg/dl Total Bilirubin 0.8 (0.2-1.0) mg/dl AST 18 (13-39) U/L ALT 19 (7-52) U/L Alkaline Phosphatase 91 (34-104) U/L Troponin I High Sens 5.4 (0-20) pg/ml Total Protein 6.9 (6.0-8.3) gm/dl Albumin 4.1 (3.4-5.0) gm/dl Globulin 2.8 (2.5-4.0) gm/dl Albumin/Globulin Ratio 1.5 (0.9-2) TSH 7.188 H (0.300-4.500) uIu/ml Free T4 1.32 (0.61-1.60) ng/dl Urine Color Yellow Urine Appearance Clear (Clear) Urine pH 5.0 (4.5-7.5) Ur Specific [place] 1.025 (1.000-1.030) Urine Protein Trace H (Negative) Urine Glucose (UA) Negative (Negative) Urine Ketones Trace H (Negative) Urine Blood Negative (Negative) Urine Nitrite Negative (Negative) Urine Bilirubin Negative (Negative) Urine Urobilinogen Negative (Negative) Ur Leukocyte Esterase Negative (Negative) Urine WBC (Auto) 0-5 (0-5) /hpf Urine RBC (Auto) 0-2 (0-2) /hpf U Hyaline Cast (Auto) 0-2 (0-2) /lpf U Epithel Cells (Auto) 0-2 (0-2) /hpf Urine Bacteria (Auto) None Seen (None Seen) Administered Medications Sodium Chloride (Nss) 1,000 mls @ 125 mls/hr IV .Q8H MERE Stop: 07/06/24 09:14 Last Admin: 06/06/24 09:14 Dose: 125 mls/hr Documented By: JI Discontinued Medications Sodium Chloride (Nss) 500 mls @ 999 mls/hr IV .Q31M ONE Stop: 06/06/24 09:32 Last Infusion: 06/06/24 10:01 Dose: Infused Documented By: Admin: 06/06/24 09:08 Dose: 999 mls/hr Documented By: IJ Metoprolol Tartrate (Metoprolol Tartrate 1 Mg/Ml Vial) 2.5 mg IV NOW STA Stop: 06/06/24 09:03 Last Admin: 06/06/24 09:09 Dose: 2.5 mg Documented By: JI Metoprolol Tartrate (Metoprolol Tartrate 1 Mg/Ml Vial) 2.5 mg IV NOW STA Stop: 06/06/24 10:14 Last Admin: 06/06/24 10:18 Dose: 2.5 mg Documented By: JI Imaging Data Radiologist's Impression: Chest X-Ray 06/06/24 08:53 XR chest 1V portable HISTORY: 84 years-old Male Dysrhythmia COMPARISON: March 20, 2022 TECHNIQUE: AP view of the chest FINDINGS: Cardiomediastinal and hilar silhouettes are within normal limits. Coronary arterial stent. Moderate hemidiaphragmatic elevation. Mild linear bibasilar atelectasis versus scarring. No pneumothorax or pleural effusion. Bones appear intact. IMPRESSION: No acute process. ACT 112: Negative or not required by law. The above report was generated using voice recognition software. It may contain grammatical, syntax or spelling errors. Electronically signed by: Ben Gerber M.D. 06/06/2024 9:38 AM Discharge Plan Visit Data Chief Complaint: Cardiac Assessment Stated Complaint: IRREGULAR HEARTBEAT, HIGH BP, ANGINA, SOB ED Provider: Blaze Walker Discharge Problem: Atrial fibrillation with rapid ventricular response, Chest pain, SOB (shortness of breath) Forms Stand Alone Forms: Scali Prescriptions Prescriptions: No Action atorvastatin 20 mg tablet 20 mg PO HS Qty: 90 3RF aspirin 81 mg tablet,delayed release (DR/EC) 81 mg PO QAM levothyroxine 75 mcg tablet 75 mcg PO QAM Eliquis 5 mg tablet 5 mg PO QPM Rx Instructions: NORMALLY IN THE EVENING DID TAKE AM OF 06/06/24 Referrals Referrals: Albino Purvis MD [Primary Care Provider] -
[2024-06-06] MEDS: SODIUM CHLORIDE 0.9% 1,000 ML IV SCH (09:14)
[2024-06-06 09:28] LABS: Albumin Globulin Ratio 1.5 (0.9-2); Albumin Level 4.1 gm/dl (3.4-5.0); BUN Creatinine Ratio 27.6 (10-20); Bilirubin,Total 0.8 mg/dl (0.2-1.0); Creatinine Clr Calc Pharmacy 60.1 ml/min; Est GFR (African American) 92.5 ml/min; Est GFR (Non-African American) 79.8 ml/min; Globulin 2.8 gm/dl (2.5-4.0); Magnesium 2.2 mg/dl (1.7-2.4); Potassium 4.2 mmol/L (3.5-5.1); Total Protein 6.9 gm/dl (6.0-8.3)
[2024-06-06 09:33] LABS: Troponin I High Sensitivity 5.4 pg/ml (0-20)
--- NOTE | 2024-06-06 09:39 | XRay Report ---
XR chest 1V portable HISTORY: 84 years-old Male Dysrhythmia COMPARISON: March 20, 2022 TECHNIQUE: AP view of the chest FINDINGS: Cardiomediastinal and hilar silhouettes are within normal limits. Coronary arterial stent. Moderate h emidiaphragmatic elevation. Mild linear bibasilar atelectasis versus scarring. No pneumothorax or ple ural effusion. Bones appear intact. IMPRESSION: No acute process. ACT 112: Negative or not required by law. The above report was generated using voice recognition software. It may contain grammatical, syntax o r spelling errors. Electronically signed by: Ben Gerber M.D. 06/06/2024 9:38 AM
[2024-06-06 09:43] LABS: Thyroid Stimulating Hormone 7.188 uIu/ml (0.300-4.500)
--- NOTE | 2024-06-06 10:00 | History & Physical Report ---
Date of Service June 06, 2024 Assessment & Plan (1) Atrial fibrillation with rapid ventricular response: (2) Chest pain: Plan: Atrial Fibrillation RVR H/O P.Afib, mitral regurgitation CXR:No acute process. TSH elevated, normal free T4 Update ECHO Monitor and replace electrolytes as needed Started on metoprolol 12.5 mg every 6 hours IV Lopressor as needed Continue IV fluids Cardiology consulted Continue Eliquis 5 mg twice daily (Of note: Was taking Eliquis 5 mg daily at home) Trend cardiac enzymes Leukocytosis Likely reactive No obvious source of infection Check UA Coronary artery disease s/p PCI Continue aspirin, Lipitor, metoprolol Hyperlipidemia On statin Hypothyroidism Elevated TSH, normal free T4 Continue levothyroxine Will need outpatient thyroid function test in 4 weeks Prostate cancer S/P cryotherapy X2 Biochemical failure with rising PSA Follows with [facility] urology May need to reconsider radiation as per last urology note Will need follow-up with urology on discharge DVT Px: Eliquis CODE STATUS Full code History of Present Illness Chief Complaint: Chest Pain, Palpitations Primary Care Provider: Albino Purvis MD Patient is an 84-year-old male with history of coronary artery disease s/p stent, paroxysmal atrial fibrillation on chronic anticoagulation with Eliquis, mitral regurgitation, prediabetes, hypertension, hyperlipidemia, prostate cancer, hypothyroidism and other medical problems presents with history of palpitations, chest pain and shortness of breath on exertion. Patient states that he periodically checks his pulse and yesterday he felt that he could not feel his pulse. He admits to have palpitations and minimal dull aching chest discomfort 2/10, associated with dyspnea on exertion. He consumed alcohol yesterday night as he was unable to sleep. He was previously on metoprolol but was discontinued due to intolerance. He denies any excess coffee intake. He has been taking his Eliquis only once a day--was unsure that he was supposed to take 2 times a day. Denies any history of dizziness, pedal edema, cough, fever, chills, headache, change in vision, nausea, vomiting, abdominal pain, diarrhea, dysuria. Currently he is chest pain-free. Allergies Allergy/AdvReac Type Severity Reaction Status Date / Time No Known Allergies Allergy Verified 06/06/24 09:41 Home Medications Medication Instructions Recorded Confirmed Type aspirin 81 mg tablet,delayed 81 mg PO QAM 11/20/20 06/06/24 History release levothyroxine 75 mcg tablet 75 mcg PO QAM 11/23/20 06/06/24 History atorvastatin 20 mg tablet 20 mg PO HS #90 tabs 05/03/24 06/06/24 Rx apixaban 5 mg tablet (Eliquis) 5 mg PO QPM 06/06/24 06/06/24 History Past Med/Surg History Problem List SOB (shortness of breath) (Acute) Chest pain (Acute) Atrial fibrillation with rapid ventricular response (Acute) Dyspnea on exertion Aortic regurgitation Hyperlipidemia Hypertension S/P coronary artery stent placement Coronary artery disease Left-sided chest pain (Acute) Paroxysmal atrial fibrillation Atrial fibrillation with RVR (Acute) Prostate cancer (11/17/98) Medical History Atypical chest pain Fatigue Hypothyroidism Myocardial infarct Pre-diabetes Mitral regurgitation Family History Father Cancer Pancreatic Hypertension Mother COPD (chronic obstructive pulmonary disease) Cancer Breast Denies family history of Heart disease Social History Smoking Status: Former smoker Do You Dip or Chew Tobacco: No; Hx Alcohol Use: Yes Alcohol Intake Frequency Comment: socially Hx Substance Use: No Preferred Language: Serbian Communication Ability: Effective Hearing Ability: Normal Denture Technician Required: No Beliefs That Will Affect Care: None marital status: Life Partner Current Living Situation: Spouse current occupational status: retired Feels Safe at Home: Yes Diet: regular caffeine: Yes Physical Activity Frequency: Does not Exercise Assistive Devices: None Review of Systems Review of Systems: All systems reviewed & are unremarkable except as noted in Subjective Physical Exam Physical Exam: Physical Exam: Vitals signs as noted above General Appearance: Thin, frail, elderly, no apparent distress Head: normocephalic, Atraumatic Eyes: normal inspection, EOMI Neck: supple, Trachea midline Respiratory/Chest: Normal breath sounds, CTA, No accessory muscle use Cardiovascular: Irregularly irregular, tachycardia, No murmur Abdomen/GI:Soft, Non tender, Bowel sounds present Extremities/Musculoskeletal:normal inspection, no edema Neurologic/Psych:AAOX3, grossly no focal neurological deficits Skin: normal color, warm Results & Data Results & Data Vital Signs (Past 12 Hours) Vital Signs Temp Pulse Resp BP Pulse Ox 06/06/24 09:36 116 H 14 95 06/06/24 09:30 107/83 06/06/24 09:12 121 H 16 103/89 97 06/06/24 09:12 147 H 20 103/89 98 06/06/24 09:09 144 H 99/77 L 06/06/24 09:06 150 H 17 99 06/06/24 09:03 137 H 18 99 06/06/24 08:59 144 H 99/77 L 06/06/24 08:58 135 H 06/06/24 08:57 141 H 21 98 06/06/24 08:43 36.6 C 106 H 18 102/72 98 Laboratory Results Short CBC 06/06/24 Range/Units 08:58 WBC 13.69 H (4.8-10.8) K/ul Hgb 16.6 (14.0-18.0) g/dl Hct 47.5 (42.0-52.0) % Plt Count 260 (130-400) K/uL BMP 06/06/24 08:58 Sodium 135 L Potassium 4.2 Chloride 104 Carbon Dioxide 23 BUN 24 H Creatinine 0.87 Glucose 149 H Calcium 9.0 Liver Function 06/06/24 Range/Units 08:58 Total Bilirubin 0.8 (0.2-1.0) mg/dl AST 18 (13-39) U/L ALT 19 (7-52) U/L Alkaline Phosphatase 91 (34-104) U/L Albumin 4.1 (3.4-5.0) gm/dl Diagnostic Findings --CXR:No acute process. ECG Additional Comments: EKG: A-fib RVR, left axis deviation, QTc 461
[2024-06-06 10:22] LABS: T4 Free Thyroxine 1.32 ng/dl (0.61-1.60)
[2024-06-06 12:17] LABS: Appearance Urine Clear (Clear); Bacteria Urine Automated None Seen (None Seen); Bilirubin Urine Negative (Negative); Blood Urine Negative (Negative); Cast Urine Automated 0-2 /lpf (0-2); Color Urine Yellow; Epithelial Cell Urine Auto 0-2 /hpf (0-2); Glucose Urine UA Negative (Negative); Ketones Urine Trace (Negative); Leukocyte Esterase Urine Negative (Negative); Nitrite Urine Negative (Negative); Protein Urine Trace (Negative); RBC Urine Automated 0-2 /hpf (0-2); Specific Gravity Urine 1.025 (1.000-1.030); Urobilinogen Urine Negative (Negative); WBC Urine Automated 0-5 /hpf (0-5)
[2024-06-06] MEDS ORDERED: METOPROLOL TARTRATE 1 MG/ML VIAL IV PRN (14:53)
[2024-06-06] MEDS ORDERED: ACETAMINOPHEN 325 MG TAB PO PRN (14:53)
[2024-06-06] MEDS: METOPROLOL TARTRATE 25 MG TAB PO SCH (17:10)
[2024-06-06] MEDS: APIXABAN 5 MG TABLET PO SCH (17:11)
[2024-06-06] MEDS: ATORVASTATIN 20 MG TAB PO SCH (20:07)
--- NOTE | 2024-06-06 21:48 | Electrocardiogram Report ---
Test Reason : Blood Pressure : */* mmHG Vent. Rate : 146 BPM Atrial Rate : * BPM P-R Int : * ms QRS Dur : 78 ms QT Int : 296 ms P-R-T Axes : * -64 32 degrees QTcB Int : 461 ms Atrial fibrillation with rapid ventricular response Left axis deviation Septal infarct , age undetermined Abnormal ECG When compared with ECG of 05-Jan-2024 10:51, Atrial fibrillation has replaced Sinus rhythm Vent. rate has increased by 92 bpm Questionable change in QRS duration Septal infarct is now Present Confirmed by Tera Blair ([id number]) on 06/06/2024 9:47:57 PM Referred By: REFERRED SELF Confirmed By: Tera Blair
[2024-06-07 03:35] LABS: Basophils # (auto) 0.07 K/uL (0.00-0.20); Basophils % (auto) 0.6 %; Eosinophils # (auto) 0.72 K/uL (0.00-0.50); Eosinophils % (auto) 6.5 %; Hematocrit (blood only) 42.1 % (42.0-52.0); Hemoglobin 14.4 g/dl (14.0-18.0); Immature Granulocytes # (auto) 0.04 K/uL (0.01-0.20); Immature Granulocytes % (auto) 0.4 %; Lymphocytes # (auto) 3.02 K/uL (1.20-3.40); Lymphocytes % (auto) 27.2 %; Mean Corpuscular Hemoglobin 29.4 pg (25.0-34.0); Mean Corpuscular Hgb Conc 34.2 g/dL (32.0-36.0); Mean Corpuscular Volume 85.9 fL (80.0-100.0); Mean Platelet Volume 9.9 fL (9.4-12.4); Monocytes # (auto) 0.79 K/uL (0.11-0.59); Monocytes % (auto) 7.1 %; Neutrophils # (auto) 6.47 K/uL (1.40-6.50); Neutrophils % (auto) 58.2 %; Platelet Count 204 K/uL (130-400); RDW Coefficient of Variation 13.8 % (11.5-14.5); RDW Standard Deviation 42.6 fL (36.4-46.3); White Blood Count 11.11 K/ul (4.8-10.8)
[2024-06-07 03:53] LABS: BUN Creatinine Ratio 22.7 (10-20); Calcium 7.9 mg/dl (8.6-10.3); Creatinine Clr Calc Pharmacy 59.5 ml/min; Est GFR (African American) 92.1 ml/min; Est GFR (Non-African American) 79.4 ml/min; Magnesium 1.9 mg/dl (1.7-2.4); Potassium 4.2 mmol/L (3.5-5.1)
[2024-06-07] MEDS: LEVOTHYROXINE SODIUM 75 MCG TABLET PO SCH (05:42)
--- NOTE | 2024-06-07 06:21 | XCELERA ---
[id number]
[2024-06-07 07:20] LABS: Estimated Average Glucose 137 mg/dl; Hemoglobin A1C 6.4 % (4.5-5.6)
[2024-06-07] MEDS: ASPIRIN 81 MG ECTAB PO SCH (08:47)
--- NOTE | 2024-06-07 10:24 | Cardiology Consultation ---
Date of Consultation June 07, 2024 Assessment & Plan (1) Atrial fibrillation with rapid ventricular response: (2) Chest pain: Atrial Fibrillation RVR H/O P.Afib, mitral regurgitation CXR:No acute process. TSH elevated, normal free T4 Update ECHO Monitor and replace electrolytes as needed Started on metoprolol 12.5 mg every 6 hours IV Lopressor as needed Continue IV fluids Cardiology consulted Continue Eliquis 5 mg twice daily (Of note: Was taking Eliquis 5 mg daily at home) Trend cardiac enzymes Leukocytosis Likely reactive No obvious source of infection Check UA Coronary artery disease s/p PCI Continue aspirin, Lipitor, metoprolol Hyperlipidemia On statin Hypothyroidism Elevated TSH, normal free T4 Continue levothyroxine Will need outpatient thyroid function test in 4 weeks Prostate cancer S/P cryotherapy X2 Biochemical failure with rising PSA Follows with [facility] urology May need to reconsider radiation as per last urology note Will need follow-up with urology on discharge DVT Px: Eliquis CODE STATUS Full code History of Present Illness Attending Physician: Vikash Kenny MD Allergies Allergy/AdvReac Type Severity Reaction Status Date / Time No Known Allergies Allergy Verified 06/06/24 09:41 Home Medications Medication Instructions Recorded Confirmed Type aspirin 81 mg tablet,delayed 81 mg PO QAM 11/20/20 06/06/24 History release levothyroxine 75 mcg tablet 75 mcg PO QAM 11/23/20 06/06/24 History atorvastatin 20 mg tablet 20 mg PO HS #90 tabs 05/03/24 06/06/24 Rx apixaban 5 mg tablet (Eliquis) 5 mg PO QPM 06/06/24 06/06/24 History Patient History Medical History Atypical chest pain Fatigue Hypothyroidism Myocardial infarct Pre-diabetes Mitral regurgitation Family History Father Cancer Pancreatic Hypertension Mother COPD (chronic obstructive pulmonary disease) Cancer Breast Denies family history of Heart disease Social History Smoking Status: Never smoker Second Hand Exposure: No; Do You Dip or Chew Tobacco: No; Tobacco Cessation Education Requested by Patient: No Hx Alcohol Use: No Hx Substance Use: No Preferred Language: Cantonese Liberian Communication Ability: Effective Hearing Ability: Normal Testing Specialist Required: No Beliefs That Will Affect Care: None marital status: Life Partner Current Living Situation: Significant Other current occupational status: retired Other Information That Helps Us Care for You: No Feels Safe at Home: Yes Safety Concerns: Feels Safe At This Time Diet: regular caffeine: Yes Physical Activity Frequency: Does not Exercise Assistive Devices: None Results & Data Vital Signs (Past 12 Hours) Vital Signs Temp Pulse Pulse Resp BP Pulse Ox O2 Del Method 06/07/24 07:08 36.6 C 102 H 17 108/72 95 Room Air 06/07/24 03:38 36.7 C 93 H 18 98/62 L 96 Room Air 06/06/24 23:35 36.9 C 94 H 18 98/62 L 96 Room Air 06/06/24 23:16 100 H
--- NOTE | 2024-06-07 10:58 | Cardiology Consultation ---
Date of Consultation June 07, 2024 Assessment & Plan (1) Atrial fibrillation with rapid ventricular response: Atrial Fibrillation with RVR on presentation; Hemodynamically stable now BP: 98/62- 110/74; symptom free now Pulse: 91 bpm, Irregular ( 141 on presentation); Downtrending Tele: Afib throughout Hydration status: Normal Under Metoprolol 12.5 mg PO q 6 hours; last dose 8: 48 am; received 3 doses in total IV Metoprolol PRN; not received yet CXR: No Acute Changes ECHO: Normal LVEF: 60-65%, Moderate concentric LVH, Afib with RVR Electrolytes: Stable Continue Eliquis 5 mg twice daily Can D/C Fluids. Cardioversion is not indicated as per his status now as he is hemodynamically stable; not symptomatic of AFib. Continue cardiac monitoring. Continue same treatment. Target: Ventricular rate < 100/min. (2) Chest pain: Atypical, non specific Chest pain - Dull aching to sharp on and off pain, non radiating - Troponin: 4.5>---2.7 - Echo: EF 60-65%, LVH, no regional wall motion abnormality Cardiac cause very less likely (3) Hyperlipidemia: Under Atorvastatin 20 mg HS Recent Lipid Profile: 01/20 ; LDL: 62/ HDL: 49 Continue same dose (4) Hypertension: BP under control without medication Home BP range 110s Systolic as per patient. BP range since admission: 98-110/ 62-74 Advise more frequent home BP monitoring and maintain record; F/U with physician with record (5) S/P coronary artery stent placement: Stable CAD; no anginal or heart failure symptom Echo: LVEF 60-65%; Moderate concentric LVH, no wall motion abnormality Continue Aspirin, Metoprolol, Atorvastatin as per current recommendation. Supervising Physician Co-Signing Physician Notes Pt seen and examined. Agree with Dr. Justice's assessment and plan. Impression: 1. Paroxsymal atrial fibrillation -Continue Eliquis 5 mg BID. -Consider increasing metoprolol tartrate to 25 mg q6hr. -Can discharge once ventricular response below 100 bpm. 2. Atypical chest pain -Normal troponins. -No ECG changes. -Nonischemic. History of Present Illness Reason for Consultation: Afib with RVR Attending Physician: Vikash Kenny MD History of Present Illness Mr. Laura is an 84-year-old pleasant male with history of coronary artery disease s/p stent, paroxysmal atrial fibrillation on chronic anticoagulation with Eliquis, mitral regurgitation, prediabetes, hypertension, hyperlipidemia, prostate cancer, hypothyroidism and other medical problems presented to ED yesterday when he could not feel his pulse, rather felt some palpitation.He recalls how his symptoms were when he had to be admitted for Afib in past and feels this time it was not as bad as before. As he was all set to fly to [place] today, however he preferred to visit ED to make sure he is ok. He endorses some baseline chest-pain, atypical on left side of chest, previously dull aching, now kind of sharp, intermittent, non radiating, non migrating, mild rating 2/10. Today morning at around 8 am he had sharp chest pain in same location, for very short time and relieved on it own. He denies stabbing or crushing or any sort of severe pain. He noticed SOB when climbing stairs of his home yesterday, that made me feel he needs to visit ED now. He was otherwise not dyspneic except while running and doing strenuous activities. He had consumed couple of shots of vodka day before yesterday as he was unable to sleep. Last drink before this was many weeks ago. He says he drinks enough water and liquids even though he does not keep track in amount. He did not feel dehydrated. He usually drinks one cup of coffee everyday, which was same yesterday as well. He does not give h/o recent passing out,dizziness, intolerable chest pain, loss of consciousness, nausea, vomiting, headache, swelling of limbs, abdominal pain, diarrhoea or any other systemic signs of infection. Last Cardiology visit with Dr. Tera Blair on 05/03/24: He was stable with Afib and CAD S/P stenting. On chart review, following studies/procedures are recorded: 1. Cardiac catheterization 05/03/2018 [place]: LAD 70% bifurcation lesion. RCA 99%. Underwent PCI of RCA with 3.5 x 18 mm mathieu VINCE. 2. Cardiac catheterization May 2018 [place]: Mid LAD 80% bifurcation lesion extending into the D2. D2 70%. Underwent PCI of mid LAD with 2.75 x 30 mm resolute VINCE. PTCA of jailed D2. 3. Myocardial PET May 2019: No ischemia. Fixed defect inferoseptal wall (small). 4. Echo May 2019 [place]: Normal LV systolic function. EF 65%. Mild MR. Sclerotic aortic valve. Trace to mild AI. 5. Echo 11/30/2020 [facility]: Normal LV size, wall motion, systolic function. EF 60-65%. Mild LVH. Minimally sclerotic aortic valve with trace regurgitation. Normal RVSP. 6. Echo 03/21/22 [facility]:Normal LV size, wall motion and systolic function. EF 65- 70%. Moderate LVH. Mild MR. Normal RVSP. 7. Stress echo 03/14/2023 [facility]: No ischemic changes at 70% MPHR. No chest pain. 4 minutes 16 seconds Deangelo protocol. Resting EF 60-65%. Normal wall motion. Moderate LVH. Sclerotic aortic valve with trace AI. Normal RVSP. Allergies Allergy/AdvReac Type Severity Reaction Status Date / Time No Known Allergies Allergy Verified 06/06/24 09:41 Home Medications Medication Instructions Recorded Confirmed Type aspirin 81 mg tablet,delayed 81 mg PO QAM 11/20/20 06/06/24 History release levothyroxine 75 mcg tablet 75 mcg PO QAM 11/23/20 06/06/24 History atorvastatin 20 mg tablet 20 mg PO HS #90 tabs 05/03/24 06/06/24 Rx apixaban 5 mg tablet (Eliquis) 5 mg PO QPM 06/06/24 06/06/24 History Patient History Medical History Atypical chest pain Fatigue Hypothyroidism Myocardial infarct Pre-diabetes Mitral regurgitation Family History Father Cancer Pancreatic Hypertension Mother COPD (chronic obstructive pulmonary disease) Cancer Breast Denies family history of Heart disease Social History Smoking Status: Never smoker Second Hand Exposure: No; Do You Dip or Chew Tobacco: No; Tobacco Cessation Education Requested by Patient: No Hx Alcohol Use: No Hx Substance Use: No Preferred Language: Cantonese Romansh Communication Ability: Effective Hearing Ability: Normal Building Analyst/Supervisor Required: No Beliefs That Will Affect Care: None marital status: Life Partner Current Living Situation: Significant Other current occupational status: retired Other Information That Helps Us Care for You: No Feels Safe at Home: Yes Safety Concerns: Feels Safe At This Time Diet: regular caffeine: Yes Physical Activity Frequency: Does not Exercise Assistive Devices: None Review of Systems Review of Systems: As per HPI Physical Exam Physical Exam: Constitutional: Well appearing, No acute distress, PILCCOD: Negative HEENT: Atraumatic, Normocephalic, No conjunctival injection, No Carotid bruits BL CVS: S1 S2 no murmur, irregularly irregular Rhythm, no LE edema, JVP not elevated Respiratory: BL equal air entry with NVBS. No rhonchi, wheezes, or crackles. No increased work of breathing GI: Soft, Nondistended, Nontender, Normal Bowel sounds + MSK: No gross deformities noted Skin: Warm, Dry, No rashes Neuro: Alert, Oriented to TPP, No Focal deficit Psych: Mood and Affect congruent, Cooperative on exam Results & Data Vital Signs (Past 12 Hours) Vital Signs Temp Pulse Pulse Resp BP Pulse Ox O2 Del Method 06/07/24 07:08 36.6 C 102 H 17 108/72 95 Room Air 06/07/24 03:38 36.7 C 93 H 18 98/62 L 96 Room Air 06/06/24 23:35 36.9 C 94 H 18 98/62 L 96 Room Air 06/06/24 23:16 100 H PG Care Time/CCT Total # of Minutes Spent Total Time Spent with Patient: Total time spent is greater than 50% in coordination of care (as documented) at patient's floor/unit and/or counseling patient: Coding Level of Care Code 54625 INT INP/OBS CARE 3/75MIN Diagnoses Atrial fibrillation with rapid ventricular response I48.91 Chest pain R07.9 Hyperlipidemia E78.5 Hypertension I10 S/P coronary artery stent placement Z95.5 Resident Activity Tracking Resident Involvement: Resident Care Provided Care Provided: Adult Hospital Medicine
--- NOTE | 2024-06-07 13:04 | Electrocardiogram Report ---
Test Reason : Blood Pressure : */* mmHG Vent. Rate : 100 BPM Atrial Rate : 98 BPM P-R Int : * ms QRS Dur : 78 ms QT Int : 338 ms P-R-T Axes : * -31 1 degrees QTcB Int : 436 ms Atrial fibrillation Left axis deviation Low voltage QRS Septal infarct (cited on or before 20-Mar-2022) Inferior infarct (cited on or before 10-Jan-2022) Abnormal ECG When compared with ECG of 06-Jun-2024 08:52, Questionable change in initial forces of Septal leads Confirmed by Pio Smith ([id number]) on 06/07/2024 1:04:13 PM Referred By: REFERRED SELF Confirmed By: Pio Smith
[2024-06-07] MEDS: POLYETHYLENE (MIRALAX) 17 GM PACK PO PRN (15:22)
--- NOTE | 2024-06-07 16:48 | Hospitalist Progress Note ---
Date of Service June 07, 2024 Assessment & Plan (1) Atrial fibrillation with rapid ventricular response: (2) Chest pain: Plan: Atrial Fibrillation RVR H/O P.Afib, mitral regurgitation CXR:No acute process. TSH elevated, normal free T4 Echo of the heart showed-normal LV size and systolic function with an EF 60 to 65%. No regional wall abnormalities and moderate concentric LVH. Sclerotic aortic valve with trace regurgitation, mild mitral regurgitation, normal estimated right ventricular systolic pressure and compared to the study of 03/14/2023 rhythm is now in AF with rapid ventricular response Monitor and replace electrolytes as needed Started on metoprolol 12.5 mg every 6 hours-increase the dose of metoprolol at 25 mg every 6 hours IV Lopressor as needed Continue IV fluids Cardiology consulted-appreciate input and recommendation Continue Eliquis 5 mg twice daily (Of note: Was taking Eliquis 5 mg daily at home) Leukocytosis Likely reactive No obvious source of infection Check UA Coronary artery disease s/p PCI Continue aspirin, Lipitor, metoprolol Hyperlipidemia On statin Hypothyroidism Elevated TSH, normal free T4 Continue levothyroxine Will need outpatient thyroid function test in 4 weeks Prostate cancer S/P cryotherapy X2 Biochemical failure with rising PSA Follows with [facility] urology May need to reconsider radiation as per last urology note Will need follow-up with urology on discharge DVT Px: Eliquis CODE STATUS Full code Admission and Anticipated Discharge Date Admission Date: June 06, 2024 Subjective 06/07/2024 The patient was seen and examined in telemetry unit He has been complaining of palpitation and some chest discomfort for the last day or 2 He canceled his trip to [place] and came to the hospital and noted to have A-fib with RVR Denies any other significant symptoms Review of Systems Review of Systems: All systems reviewed and are unremarkable except as noted below Physical Exam Physical Exam: Lying in bed without any acute distress Constitutional: + ill appearing and average body habitus Eyes: PERRL, conjunctivae normal, anicteric sclerae ENMT: external ear and nose normal, oropharynx normal Neck: trachea midline, no thyromegaly Respiratory: no respiratory distress Auscultation: lungs clear to auscultation bilaterally Cardiovascular: Rate/Rhythm: + tachycardic and + irregularly irregular Heart Sounds: normal S1 and normal S2; no murmur Extremities: no edema Gastrointestinal (Abdomen): Inspection/Auscultation: normal bowel sounds; abdomen not distended Percussion/Palpation: abdomen soft; abdomen nontender Musculoskeletal: No acute arthritis involving any of the joint Neurologic: normal touch/pain/proprioception and moves all extremities; no focal motor deficits Psychiatric: A+Ox3, euthymic affect Lymphatic: no cervical or axillary lymphadenopathy Results & Data Results & Data Vital Signs (Past 12 Hours) Vital Signs Temp Pulse Resp BP Pulse Ox O2 Del Method 06/07/24 15:26 36.7 C 112 H 19 129/83 97 Room Air 06/07/24 10:46 36.7 C 106 H 17 106/64 95 Room Air 06/07/24 07:08 36.6 C 102 H 17 108/72 95 Room Air Laboratory Results Current Inpatient Medications Acetaminophen (Acetaminophen 325 Mg Tab) 650 mg PO Q4H PRN PRN Reason: Pain or Fever Stop: 07/06/24 14:52 Apixaban (Apixaban 5 Mg Tablet) 5 mg PO BID@0600,1800 [facility] Stop: 07/06/24 17:59 Last Admin: 06/07/24 05:42 Dose: 5 mg Aspirin (Aspirin 81 Mg Ectab) 81 mg PO QAM MERE Stop: 07/07/24 08:59 Last Admin: 06/07/24 08:47 Dose: 81 mg Atorvastatin Calcium (Atorvastatin 20 Mg Tab) 20 mg PO HS [facility] Stop: 07/06/24 20:59 Last Admin: 06/06/24 20:07 Dose: 20 mg Levothyroxine Sodium (Levothyroxine Sodium 75 Mcg Tablet) 75 mcg PO DAILYBB [facility] Stop: 07/07/24 06:29 Last Admin: 06/07/24 05:42 Dose: 75 mcg Metoprolol Tartrate (Metoprolol Tartrate 1 Mg/Ml Vial) 2.5 mg IV Q6 PRN PRN Reason: Tachycardia HR>120 Stop: 07/06/24 14:52 Metoprolol Tartrate (Metoprolol Tartrate 25 Mg Tab) 25 mg PO Q6H [facility] Stop: 07/07/24 15:59 Polyethylene Glycol (Polyethylene (Miralax) 17 Gm Pack) 17 gm PO DAILY PRN PRN Reason: Constipation Stop: 07/06/24 14:52 Last Admin: 06/07/24 15:22 Dose: 17 gm Medications Administered Current Inpatient Medications Acetaminophen (Acetaminophen 325 Mg Tab) 650 mg PO Q4H PRN PRN Reason: Pain or Fever Stop: 07/06/24 14:52 Apixaban (Apixaban 5 Mg Tablet) 5 mg PO BID@0600,1800 [facility] Stop: 07/06/24 17:59 Last Admin: 06/07/24 05:42 Dose: 5 mg Aspirin (Aspirin 81 Mg Ectab) 81 mg PO QAM MERE Stop: 07/07/24 08:59 Last Admin: 06/07/24 08:47 Dose: 81 mg Atorvastatin Calcium (Atorvastatin 20 Mg Tab) 20 mg PO HS [facility] Stop: 07/06/24 20:59 Last Admin: 06/06/24 20:07 Dose: 20 mg Levothyroxine Sodium (Levothyroxine Sodium 75 Mcg Tablet) 75 mcg PO DAILYBB [facility] Stop: 07/07/24 06:29 Last Admin: 06/07/24 05:42 Dose: 75 mcg Metoprolol Tartrate (Metoprolol Tartrate 1 Mg/Ml Vial) 2.5 mg IV Q6 PRN PRN Reason: Tachycardia HR>120 Stop: 07/06/24 14:52 Metoprolol Tartrate (Metoprolol Tartrate 25 Mg Tab) 25 mg PO Q6H MERE Stop: 07/07/24 15:59 Polyethylene Glycol (Polyethylene (Miralax) 17 Gm Pack) 17 gm PO DAILY PRN PRN Reason: Constipation Stop: 07/06/24 14:52 Last Admin: 06/07/24 15:22 Dose: 17 gm
[2024-06-07] MEDS: METOPROLOL TARTRATE 25 MG TAB PO SCH (17:07)
[2024-06-08 07:37] LABS: Basophils # (auto) 0.06 K/uL (0.00-0.20); Basophils % (auto) 0.7 %; Eosinophils # (auto) 0.53 K/uL (0.00-0.50); Eosinophils % (auto) 6.1 %; Hematocrit (blood only) 42.4 % (42.0-52.0); Hemoglobin 14.4 g/dl (14.0-18.0); Immature Granulocytes # (auto) 0.04 K/uL (0.01-0.20); Immature Granulocytes % (auto) 0.5 %; Lymphocytes # (auto) 2.29 K/uL (1.20-3.40); Lymphocytes % (auto) 26.2 %; Mean Corpuscular Hemoglobin 29.4 pg (25.0-34.0); Mean Corpuscular Volume 86.5 fL (80.0-100.0); Monocytes # (auto) 0.57 K/uL (0.11-0.59); Monocytes % (auto) 6.5 %; Neutrophils # (auto) 5.25 K/uL (1.40-6.50); Platelet Count 184 K/uL (130-400); RDW Coefficient of Variation 13.8 % (11.5-14.5); RDW Standard Deviation 43.2 fL (36.4-46.3); White Blood Count 8.74 K/ul (4.8-10.8)
[2024-06-08 07:50] LABS: Calcium 8.4 mg/dl (8.6-10.3); Creatinine Clr Calc Pharmacy 55.7 ml/min; Est GFR (African American) 86.6 ml/min; Est GFR (Non-African American) 74.7 ml/min; Potassium 4.3 mmol/L (3.5-5.1)
[2024-06-08 10:44] VITALS: BP 146/78; PULSE 58; RESP 18; TEMP 98.4; O2SAT 96
--- NOTE | 2024-06-08 11:00 | Hospitalist Progress Note ---
Date of Service June 08, 2024 Assessment & Plan (1) Atrial fibrillation with rapid ventricular response: (2) Chest pain: Plan: Atrial Fibrillation RVR H/O P.Afib, mitral regurgitation CXR:No acute process. TSH elevated, normal free T4 Echo of the heart showed-normal LV size and systolic function with an EF 60 to 65%. No regional wall abnormalities and moderate concentric LVH. Sclerotic aortic valve with trace regurgitation, mild mitral regurgitation, normal estimated right ventricular systolic pressure and compared to the study of 03/14/2023 rhythm is now in AF with rapid ventricular response Monitor and replace electrolytes as needed Started on metoprolol 12.5 mg every 6 hours-increase the dose of metoprolol at 25 mg every 6 hours IV Lopressor as needed Continue IV fluids Cardiology consulted-appreciate input and recommendation Continue Eliquis 5 mg twice daily (Of note: Was taking Eliquis 5 mg daily at home) Reverted to sinus rhythm and maintained rate at 58/min Discussed with the principal cyber engineer Will be given Toprol-XL 25 mg once daily Leukocytosis Likely reactive No obvious source of infection Check UA Coronary artery disease s/p PCI Continue aspirin, Lipitor, metoprolol Hyperlipidemia On statin Hypothyroidism Elevated TSH, normal free T4 Continue levothyroxine Will need outpatient thyroid function test in 4 weeks Prostate cancer S/P cryotherapy X2 Biochemical failure with rising PSA Follows with [facility] urology May need to reconsider radiation as per last urology note Will need follow-up with urology on discharge DVT Px: Eliquis CODE STATUS Full code Will be discharged home this afternoon Admission and Anticipated Discharge Date Admission Date: June 06, 2024 Subjective 06/07/2024 The patient was seen and examined in telemetry unit He has been complaining of palpitation and some chest discomfort for the last day or 2 He canceled his trip to [place] and came to the hospital and noted to have A-fib with RVR Denies any other significant symptoms 06/08/2024 The patient was seen and examined in telemetry unit He has been feeling much better and does not have any palpitation and/or shortness of breath Denies any chest discomfort or pressure He was reverted to sinus rhythm this morning Review of Systems Review of Systems: All systems reviewed and are unremarkable except as noted below Physical Exam Physical Exam: Lying in bed without any acute distress Constitutional: + ill appearing and average body habitus Eyes: PERRL, conjunctivae normal, anicteric sclerae ENMT: external ear and nose normal, oropharynx normal Neck: trachea midline, no thyromegaly Respiratory: no respiratory distress Auscultation: lungs clear to auscultation bilaterally Cardiovascular: Rate/Rhythm: + tachycardic and + irregularly irregular Heart Sounds: normal S1 and normal S2; no murmur Extremities: no edema Gastrointestinal (Abdomen): Inspection/Auscultation: normal bowel sounds; abdomen not distended Percussion/Palpation: abdomen soft; abdomen nontender Neurologic: normal touch/pain/proprioception and moves all extremities; no focal motor deficits Psychiatric: A+Ox3, euthymic affect Lymphatic: no cervical or axillary lymphadenopathy Results & Data Results & Data Vital Signs (Past 12 Hours) Vital Signs Temp Pulse Pulse Resp BP Pulse Ox O2 Del Method 06/08/24 10:43 36.9 C 58 L 18 146/78 H 96 Room Air 06/08/24 07:09 36.5 C 89 20 128/70 95 Room Air 06/08/24 03:11 36.7 C 56 L 18 118/69 92 Room Air 06/07/24 23:38 56 L Laboratory Results Short CBC 06/08/24 Range/Units 07:16 WBC 8.74 (4.8-10.8) K/ul Hgb 14.4 (14.0-18.0) g/dl Hct 42.4 (42.0-52.0) % Plt Count 184 (130-400) K/uL BMP 06/08/24 07:16 Sodium 137 Potassium 4.3 Chloride 107 Carbon Dioxide 26 BUN 16 Creatinine 0.94 Glucose 131 H Calcium 8.4 L Medications Administered Current Inpatient Medications Acetaminophen (Acetaminophen 325 Mg Tab) 650 mg PO Q4H PRN PRN Reason: Pain or Fever Stop: 07/06/24 14:52 Apixaban (Apixaban 5 Mg Tablet) 5 mg PO BID@0600,1800 [facility] Stop: 07/06/24 17:59 Last Admin: 06/08/24 05:57 Dose: 5 mg Aspirin (Aspirin 81 Mg Ectab) 81 mg PO QAM MERE Stop: 07/07/24 08:59 Last Admin: 06/08/24 09:33 Dose: 81 mg Atorvastatin Calcium (Atorvastatin 20 Mg Tab) 20 mg PO HS MERE Stop: 07/06/24 20:59 Last Admin: 06/07/24 20:41 Dose: 20 mg Levothyroxine Sodium (Levothyroxine Sodium 75 Mcg Tablet) [facility] Stop: 07/07/24 06:29 Last Admin: 06/08/24 05:57 Dose: 75 mcg Metoprolol Succinate (Metoprolol Succ 25mg Ext Rel Tab) 12.5 mg PO ONE ONE Stop: 06/08/24 13:01 Metoprolol Tartrate (Metoprolol Tartrate 1 Mg/Ml Vial) 2.5 mg IV Q6 PRN PRN Reason: Tachycardia HR>120 Stop: 07/06/24 14:52 Polyethylene Glycol (Polyethylene (Miralax) 17 Gm Pack) 17 gm PO DAILY PRN PRN Reason: Constipation Stop: 07/06/24 14:52 Last Admin: 06/07/24 15:22 Dose: 17 gm
--- NOTE | 2024-06-08 11:37 | Electrocardiogram Report ---
Test Reason : Blood Pressure : */* mmHG Vent. Rate : 106 BPM Atrial Rate : 107 BPM P-R Int : * ms QRS Dur : 76 ms QT Int : 322 ms P-R-T Axes : * -36 12 degrees QTcB Int : 427 ms Atrial fibrillation with rapid ventricular response Left axis deviation Low voltage QRS Inferior infarct (cited on or before 10-Jan-2022) Abnormal ECG When compared with ECG of 07-Jun-2024 05:39, Criteria for Septal infarct are no longer Present Confirmed by Pio Smith ([id number]) on 06/08/2024 11:37:09 AM Referred By: REFERRED SELF Confirmed By: Pio Smith
--- NOTE | 2024-06-08 11:58 | Electrocardiogram Report ---
Test Reason : Blood Pressure : */* mmHG Vent. Rate : 55 BPM Atrial Rate : 55 BPM P-R Int : 182 ms QRS Dur : 88 ms QT Int : 444 ms P-R-T Axes : -10 -30 17 degrees QTcB Int : 424 ms Sinus bradycardia Left axis deviation Low voltage QRS Inferior infarct (cited on or before 10-Jan-2022) Abnormal ECG When compared with ECG of 07-Jun-2024 09:14, (unconfirmed) Sinus rhythm has replaced Atrial fibrillation Vent. rate has decreased by 51 bpm Confirmed by Pio Smith ([id number]) on 06/08/2024 11:58:32 AM Referred By: REFERRED SELF Confirmed By: Pio Smith
--- NOTE | 2024-06-08 13:02 | Cardiology Progress Note ---
Date of Service June 08, 2024 Assessment & Plan (1) Paroxysmal atrial fibrillation: Plan: -Converted to sinus rhythm yesterday afternoon. -Would discharge on metoprolol succinate 25 mg daily. -Continue Eliquis 5 mg twice daily. -Stable for hospital discharge. (2) Coronary artery disease: Plan: -s/p LAD and RCA PCI, 2018. -Has been quiescent since that time. Admission and Anticipated Discharge Date Admission Date: June 06, 2024 Subjective The patient is resting comfortably in bed without complaints of chest pain, dyspnea, or palpitations. He is anxious for hospital discharge. Physical Exam Physical Exam: In general this is a well-developed well-nourished white male in no acute distress. HEENT exam is negative. Neck reveals normal carotid upstrokes without bruits. Jugular venous pressure is flat at 90. There is no thyromegaly. Cardiovascular exam reveals a regular rhythm with a normal S1 and S2. No S3, S4, or murmurs are noted. Lungs are clear without rales, rhonchi, or wheezes. Abdomen is soft without bruits. Extremities reveal intact radial artery pulses bilaterally. There is no peripheral edema. Results & Data Vital Signs (Past 12 Hours) Vital Signs Temp Pulse Resp BP Pulse Ox O2 Del Method 06/08/24 10:43 36.9 C 58 L 18 146/78 H 96 Room Air 06/08/24 07:09 36.5 C 89 20 128/70 95 Room Air 06/08/24 03:11 36.7 C 56 L 18 118/69 92 Room Air Diagnostic Findings night monitor notes normal sinus rhythm. Converted from atrial fibrillation at approximately 5 PM yesterday. PG Care Time/CCT Total # of Minutes Spent Total Time Spent with Patient: Total time spent is greater than 50% in coordination of care (as documented) at patient's floor/unit and/or counseling patient: Coding Level of Care Code 37890 SUB INP/OBS CARE 3/50MIN Diagnoses Paroxysmal atrial fibrillation I48.0 Coronary artery disease I25.10
[2024-06-08] MEDS: METOPROLOL SUCC 25MG EXT REL TAB PO ONE (13:41)
--- NOTE | 2024-06-09 07:44 | Discharge Summary ---
Date of Service June 09, 2024 Admission HPI Per Admitting Provider Patient is an 84-year-old male with history of coronary artery disease s/p stent, paroxysmal atrial fibrillation on chronic anticoagulation with Eliquis, mitral regurgitation, prediabetes, hypertension, hyperlipidemia, prostate cancer, hypothyroidism and other medical problems presents with history of palpitations, chest pain and shortness of breath on exertion. Patient states that he periodically checks his pulse and yesterday he felt that he could not feel his pulse. He admits to have palpitations and minimal dull aching chest discomfort 2/10, associated with dyspnea on exertion. He consumed alcohol yes terday night as he was unable to sleep. He was previously on metoprolol but was discontinued due to intolerance. He denies any excess coffee intake. He has been taking his Eliquis only once a day--was unsure that he was supposed to take 2 times a day. Denies any history of dizziness, pedal edema, cough, fever, chills, headache, change in vision, nausea, vomiting, abdominal pain, diarrhea, dysuria. Currently he is chest pain-free. Admission Exam Per Admitting Provider Physical Exam: Physical Exam: Vitals signs as noted above General Appearance: Thin, frail, elderly, no apparent distress Head: normocephalic, Atraumatic Eyes: normal inspection, EOMI Neck: supple, Trachea midline Respiratory/Chest: Normal breath sounds, CTA, No accessory muscle use Cardiovascular: Irregularly irregular, tachycardia, No murmur Abdomen/GI:Soft, Non tender, Bowel sounds present Extremities/Musculoskeletal:normal inspection, no edema Neurologic/Psych:AAOX3, grossly no focal neurological deficits Skin: normal color, warm Principal Diagnosis A-fib with RVR Discharge Exam Lying in bed without any acute distress Constitutional + ill appearing and average body habitus Eyes PERRL, conjunctivae normal, anicteric sclerae ENMT external ear and nose normal, oropharynx normal Neck trachea midline, no thyromegaly Respiratory no respiratory distress Auscultation: lungs clear to auscultation bilaterally Cardiovascular Rate/Rhythm: + tachycardic and + irregularly irregular Heart Sounds: normal S1 and normal S2; no murmur Extremities: no edema Gastrointestinal (Abdomen) Inspection/Auscultation: normal bowel sounds; abdomen not distended Percussion/Palpation: abdomen soft; abdomen nontender Neurologic normal touch/pain/proprioception and moves all extremities; no focal motor deficits Psychiatric A+Ox3, euthymic affect Lymphatic no cervical or axillary lymphadenopathy Discharge Data Allergies Allergy/AdvReac Type Severity Reaction Status Date / Time No Known Allergies Allergy Verified 06/06/24 09:41 Consultations 06/06/24 10:13 ED Decision to Admit Stat 06/06/24 14:53 Consult Cardiology Routine Hospital Course (1) Atrial fibrillation with rapid ventricular response: (2) Chest pain: Atrial Fibrillation RVR H/O P.Afib, mitral regurgitation CXR:No acute process. TSH elevated, normal free T4 Echo of the heart showed-normal LV size and systolic function with an EF 60 to 65%. No regional wall abnormalities and moderate concentric LVH. Sclerotic aortic valve with trace regurgitation, mild mitral regurgitation, normal estimated right ventricular systolic pressure and compared to the study of 03/14/2023 rhythm is now in AF with rapid ventricular response Monitor and replace electrolytes as needed Started on metoprolol 12.5 mg every 6 hours-increase the dose of metoprolol at 25 mg every 6 hours IV Lopressor as needed Continue IV fluids Cardiology consulted-appreciate input and recommendation Continue Eliquis 5 mg twice daily (Of note: Was taking Eliquis 5 mg daily at home) Reverted to sinus rhythm and maintained rate at 58/min Discussed with the window systems administrator Will be given Toprol-XL 25 mg once daily Leukocytosis Likely reactive No obvious source of infection Check UA Coronary artery disease s/p PCI Continue aspirin, Lipitor, metoprolol Hyperlipidemia On statin Hypothyroidism Elevated TSH, normal free T4 Continue levothyroxine Will need outpatient thyroid function test in 4 weeks Prostate cancer S/P cryotherapy X2 Biochemical failure with rising PSA Follows with [facility] urology May need to reconsider radiation as per last urology note Will need follow-up with urology on discharge DVT Px: Eliquis CODE STATUS Full code Will be discharged home this afternoon Total Time Total Time Spent Total Time Spent (In Minutes): 35 minutes Discharge Plan Discharge Items Patient Disposition: Home - Self-Care Reason For Visit: chest pain Discharge Diagnosis: A-fib with RVR Condition on Discharge: Good Activity: Resume your previous activity Non-emergency contact: Primary Care Provider Call non-emergency contact if: you have any medication questions and your symptoms worsen Follow-up/Referrals: Albino Purvis MD [Primary Care Provider] - (Date & Time 06/14/2024 2:20 PM Provider Albino Purvis MD Department [facility] ) Diet: Heart Healthy Addtl Attending Provider Instructions: Please take precautions to avoid falls Take your medications as advised Please keep appointments with your healthcare providers Pending Studies at Discharge: No Stand-Alone Forms: [facility], Smoking Cessation Medications and DC Order Prescriptions: New metoprolol succinate [Toprol XL] 25 mg tablet extended release 24 hr 25 mg PO DAILY Qty: 30 0RF Continued atorvastatin 20 mg tablet 20 mg PO HS Qty: 90 3RF aspirin 81 mg tablet,delayed release (DR/EC) 81 mg PO QAM levothyroxine 75 mcg tablet 75 mcg PO QAM Eliquis 5 mg tablet 5 mg PO QPM Rx Instructions: NORMALLY IN THE EVENING DID TAKE AM OF 06/06/24 Discharge Orders: Discharge Order (Routine); Ordered 06/08/24 Ordered By: Vikash Bosch/Other Patient Handouts: Prediabetes, 5 Steps for Eating Healthier Admission Data Admit Date/Time: 06/06/24 10:09 Attending Provider: Vikash Kenny Admit Provider: Boni Bhatti Primary Care Provider: Albino Purvis Other Providers: Boni Bhatti; Abdirashid Hidalgo; Adiel Marcelo; Pio Smith; Julius Mejia; Freddie Garza; Leonardo Arroyo Jr; Tera Blair; Jada Abraham; Krissy Manzo; Clinton Galeana; Clinton Sharpe; Varinder Aguilar; Abi Pena; Thomas Lau; Natalia Vega; Valentin Jackson; Juaquin Peterson; Jaron Chen; Itz Travis Other Interventions: Discharge Summary Assessment (RN) Last Done: 06/08/24 14:03
== END 2024-06-08 14:33 | disposition home or self-care (01) | DRG 310 ==
LOC: ED 08:42 → 2S 10:09 → SUATTDRO 10:09 → 2S 13:51